=== PATIENT | female | born 1940 | race Caucasian/White ===

== ENCOUNTER 2016-07-03 14:14 | Inpatient (IN) | payer OTHER ==
[~2016-07-03] VITALS: Ht 162.6 cm; Wt 73.8 kg
[~2016-07-03 14:14] MED LIST: AMIT50TA3; ATEN1TAB38; ATEN50TA; BISA-13; CYCL-181 PO; CYCL5TAB89; LORA-655; OMEP20CA5 PO; OXYB5TAB62; OXYC-589; OXYC5CAP17; PAXIL; PAXIL PO; PRILOSEC; SIMV-13 PO
[2016-07-03] MEDS ORDERED: SODIUM CHLORIDE 0.9% 250 ML IV ONE (15:16)
[2016-07-03] MEDS ORDERED: ONDANSETRON HCL 4 MG/2 ML VIAL IV ONE (15:30)
[2016-07-03] MEDS ORDERED: HYDROmorphone HCL 2 MG/ML VL IV ONE (15:30)
[2016-07-03 15:35] LABS: Basophils # (auto) 0.1 uL; Basophils % (auto) 0.5 % (0.0-2.0); Eosinophils # (auto) 0.1 uL; Eosinophils % (auto) 1.2 % (0.0-7.0); Hematocrit 41.5 % (36.0-46.0); Hemoglobin 14.1 g/dL (12.2-16.2); Lymphocytes # (auto) 0.8 uL; Mean Corpuscular Hgb Conc. 34.1 g/dL (32.0-36.0); Mean Corpuscular Volume 96.8 fL (80.0-100.0); Mean Platelet Volume 8.2 fL (7.4-10.4); Monocytes # (auto) 0.6 uL; Monocytes % (auto) 5.5 % (0.0-12.0); Neutrophils # (auto) 9.5 uL; Neutrophils % (auto) 85.8 % (37.0-80.0); Platelet Count (auto) 249 10^3/uL (140-450); Red Cell Distribution Width 13.9 % (11.6-16.0)
[2016-07-03 15:50] LABS: INR 1.05 (0.9-1.15); Partial Thromboplastin Time 29.6 sec (22.64-33.71); Prothrombin Time 10.8 sec (9.37-12.3)
[2016-07-03 16:01] LABS: Albumin 3.7 g/dL (3.4-5.0); Anion Gap 9 (5-15); Aspartate Aminotransferase 20 U/L (15-37); BUN/Creatinine Ratio 17.2; Blood Urea Nitrogen 16 mg/dL (7-18); Calcium 8.4 mg/dL (8.5-10.1); Carbon Dioxide 22 mmol/L (21-32); Chloride 107 mmol/L (98-107); GFR African American 75 mL/min; GFR Non-African American 62 mL/min; Glucose 92 mg/dL (74-106); Magnesium 2.2 mg/dL (1.6-2.6); Potassium 3.9 mmol/L (3.5-5.1); Sodium 138 mmol/L (136-145)
[2016-07-03 16:06] LABS: Alkaline Phosphatase 91 U/L (45-117); Bilirubin, Total 0.3 mg/dL (0.2-1.0); Total Protein 7.3 g/dL (6.4-8.2)
[2016-07-03 17:37] LABS: Urine RBC None Seen /hpf (0 - 4)
[2016-07-03 17:51] LABS: Urine Bilirubin Negative (Negative); Urine Blood Negative /uL (Negative); Urine Color Yellow (Yellow); Urine Glucose Normal (Normal); Urine Ketone Negative (Negative); Urine Nitrite Negative (Negative); Urine Squamous Epithelial Cell FEW /hpf (<5); Urine Urobilinogen Normal (Negative); Urine pH 6.5 (5.0-8.0)
[2016-07-03] MEDS ORDERED: DOCUSATE SOD 100 MG CAP PO PRN (18:00)
[2016-07-03] MEDS ORDERED: NITROGLYCERIN 0.4 MG SL TAB SL PRN (18:00)
[2016-07-03] MEDS ORDERED: ACETAMINOPHEN 325 MG TAB PO PRN (18:00)
[2016-07-03] MEDS ORDERED: LEVOFLOXACIN 500MG 100 ML IV ONE (18:00)
[2016-07-03] MEDS: HYDROmorphone HCL 2 MG/ML VL IV PRN (19:29)
[2016-07-03] MEDS: ONDANSETRON HCL 4 MG/2 ML VIAL IV PRN (19:32)
[2016-07-03] MEDS ORDERED: VANCOMYCIN PER PHARMACY 0 MG IV SCH (20:30)
[2016-07-03 21:06] VITALS: BP 117/60
[2016-07-03] MEDS ORDERED: ATORVASTATIN 20 MG TAB PO SCH (22:00)
[2016-07-03] MEDS ORDERED: FAMOTIDINE 20 MG TAB PO SCH (22:00)
[2016-07-03] MEDS ORDERED: VANCOMYCIN 1GM/250ML D5W 250 ML IV SCH (22:00)
[2016-07-03] MEDS: TEMAZEPAM 15 MG CAP PO PRN (22:15)
[2016-07-03] MEDS: AMITRIPTYLINE HCL 25 MG TAB PO SCH (22:15)
[2016-07-03] MEDS: PANTOPRAZOLE 40 MG TAB PO SCH (22:15)
[2016-07-03] MEDS: SODIUM CHLOR 0.9% PF (SALINE LOCK) 10ML VIAL IV SCH (22:19)
[2016-07-03 22:38] VITALS: BP 117/60
[2016-07-04] MEDS ORDERED: PNEUMOCOCCAL VACC POLYS 25 MCG/0.5 ML VIAL IM ONE
[2016-07-04 05:00] VITALS: BP 148/75
[2016-07-04] MEDS: HYDROmorphone HCL 2 MG/ML VL IV PRN ×2 (05:58→10:19)
[2016-07-04] MEDS: SODIUM CHLOR 0.9% PF (SALINE LOCK) 10ML VIAL IV SCH ×3 (05:58→22:04)
[2016-07-04 07:24] LABS: Basophils # (auto) 0 uL; Basophils % (auto) 0.5 % (0.0-2.0); Eosinophils # (auto) 0.3 uL; Eosinophils % (auto) 4.5 % (0.0-7.0); Hematocrit 37.8 % (36.0-46.0); Hemoglobin 12.7 g/dL (12.2-16.2); Lymphocytes # (auto) 0.7 uL; Lymphocytes % (auto) 10.8 % (10.0-50.0); Mean Corpuscular Hemoglobin 32.7 pg (28.0-32.0); Mean Corpuscular Hgb Conc. 33.6 g/dL (32.0-36.0); Mean Corpuscular Volume 97.3 fL (80.0-100.0); Mean Platelet Volume 8.3 fL (7.4-10.4); Monocytes # (auto) 0.6 uL; Monocytes % (auto) 8.8 % (0.0-12.0); Neutrophils # (auto) 4.9 uL; Neutrophils % (auto) 75.4 % (37.0-80.0); Platelet Count (auto) 225 10^3/uL (140-450); Red Cell Distribution Width 14.3 % (11.6-16.0); White Blood Cell 6.4 10^3/uL (4.4-10.8)
[2016-07-04 07:29] LABS: Albumin 3.2 g/dL (3.4-5.0); BUN/Creatinine Ratio 14.5; Bilirubin, Total 0.8 mg/dL (0.2-1.0); Calcium 8.1 mg/dL (8.5-10.1); Potassium 4.1 mmol/L (3.5-5.1); Total Protein 6.7 g/dL (6.4-8.2)
[2016-07-04 08:00] VITALS: BP_SYST 112; BP_SYST 157; BP_DIAS 67; BP_DIAS 78
[2016-07-04 08:15] VITALS: BP 112/67
[2016-07-04] MEDS: MULTIPLE VITAMIN TAB PO SCH (10:14)
[2016-07-04] MEDS: ATENOLOL 50 MG TAB PO SCH (10:16)
[2016-07-04] MEDS: PARoxetine 20 MG TAB PO SCH (10:19)
[2016-07-04] MEDS ORDERED: LEVOFLOXACIN 500MG 100 ML IV SCH (12:00)
[2016-07-04 12:30] VITALS: BP 134/83
[2016-07-04] MEDS ORDERED: SODIUM CHLORIDE 0.9% 1,000 ML IV ONE (13:30)
[2016-07-04] MEDS: OXYCODONE W/ ACETAMINOPHEN 5/325MG TABLET PO PRN ×2 (13:56→23:52)
[2016-07-04 17:00] VITALS: BP 133/71
[2016-07-04 22:00] VITALS: BP 152/78
[2016-07-04] MEDS: AMITRIPTYLINE HCL 25 MG TAB PO SCH (22:04)
[2016-07-04] MEDS: PANTOPRAZOLE 40 MG TAB PO SCH (22:05)
[2016-07-05] VITALS (7 sets, daily range): BP systolic 137–184; BP diastolic 59–84
[2016-07-05] MEDS: SODIUM CHLOR 0.9% PF (SALINE LOCK) 10ML VIAL IV SCH ×3 (05:34→21:33)
[2016-07-05] MEDS: OXYCODONE W/ ACETAMINOPHEN 5/325MG TABLET PO PRN (05:44)
[2016-07-05 06:46] LABS: Potassium 3.8 mmol/L (3.5-5.1)
[2016-07-05 07:00] LABS: Albumin 2.8 g/dL (3.4-5.0); BUN/Creatinine Ratio 10.5; Calcium 7.9 mg/dL (8.5-10.1); Total Protein 6.1 g/dL (6.4-8.2)
[2016-07-05 07:02] LABS: Bilirubin, Total 0.6 mg/dL (0.2-1.0)
[2016-07-05] MEDS: MULTIPLE VITAMIN TAB PO SCH (10:00)
[2016-07-05] MEDS: PARoxetine 20 MG TAB PO SCH (10:00)
[2016-07-05] MEDS: ENOXAPARIN SOD 40 MG/0.4 ML SYRINGE SC SCH (10:00)
[2016-07-05] MEDS: ATENOLOL 50 MG TAB PO SCH (10:00)
[2016-07-05] MEDS: ONDANSETRON HCL 4 MG/2 ML VIAL IV PRN (11:11)
[2016-07-05] MEDS: HYDROmorphone HCL 2 MG/ML VL IV PRN (11:11)
[2016-07-05] MEDS ORDERED: SODIUM CHLORIDE 0.9% 1,000 ML IV ONE (11:45)
[2016-07-05] MEDS: AMITRIPTYLINE HCL 25 MG TAB PO SCH (21:33)
[2016-07-05] MEDS: PANTOPRAZOLE 40 MG TAB PO SCH (21:33)
[2016-07-06] VITALS (7 sets, daily range): BP systolic 140–180; BP diastolic 70–88
[2016-07-06] MEDS: SODIUM CHLOR 0.9% PF (SALINE LOCK) 10ML VIAL IV SCH ×3 (05:46→21:49)
[2016-07-06] MEDS: OXYCODONE W/ ACETAMINOPHEN 5/325MG TABLET PO PRN ×3 (05:58→21:50)
[2016-07-06 06:00] LABS: Albumin 2.9 g/dL (3.4-5.0); BUN/Creatinine Ratio 12.1; Bilirubin, Total 0.7 mg/dL (0.2-1.0); Calcium 8.7 mg/dL (8.5-10.1); Potassium 3.6 mmol/L (3.5-5.1); Total Protein 6.5 g/dL (6.4-8.2)
[2016-07-06] MEDS: MULTIPLE VITAMIN TAB PO SCH (09:17)
[2016-07-06] MEDS: ENOXAPARIN SOD 40 MG/0.4 ML SYRINGE SC SCH (09:17)
[2016-07-06] MEDS: ATENOLOL 50 MG TAB PO SCH (09:17)
[2016-07-06] MEDS: PARoxetine 20 MG TAB PO SCH (09:17)
[2016-07-06] MEDS: cloNIDine HCL 0.1 MG TAB PO PRN (20:48)
[2016-07-06] MEDS: PANTOPRAZOLE 40 MG TAB PO SCH (21:49)
[2016-07-06] MEDS: AMITRIPTYLINE HCL 25 MG TAB PO SCH (21:49)
[2016-07-07] MEDS: SODIUM CHLOR 0.9% PF (SALINE LOCK) 10ML VIAL IV SCH ×3 (05:33→22:47)
[2016-07-07 05:40] VITALS: BP 147/96
[2016-07-07 08:00] VITALS: BP 136/84
[2016-07-07 09:00] VITALS: BP 136/84
[2016-07-07 10:18] LABS: Hemoglobin 13.9 g/dL (12.2-16.2)
[2016-07-07] MEDS ORDERED: GASTROGRAFIN 30 ML SOL ONE (10:29)
[2016-07-07] MEDS: ATENOLOL 50 MG TAB PO SCH (10:39)
[2016-07-07] MEDS: PARoxetine 20 MG TAB PO SCH (10:43)
[2016-07-07] MEDS: MULTIPLE VITAMIN TAB PO SCH (10:44)
[2016-07-07] MEDS: PANTOPRAZOLE 40 MG TAB PO SCH ×2 (12:13→22:47)
[2016-07-07 12:32] LABS: Hematocrit 39.9 % (36.0-46.0); Hemoglobin 13.6 g/dL (12.2-16.2)
[2016-07-07 12:48] VITALS: BP 152/74
[2016-07-07] MEDS: OXYCODONE W/ ACETAMINOPHEN 5/325MG TABLET PO PRN (14:14)
[2016-07-07 17:00] VITALS: BP 153/69
[2016-07-07 19:01] LABS: Hemoglobin 13.1 g/dL (12.2-16.2)
[2016-07-07] MEDS: HYDROmorphone HCL 2 MG/ML VL IV PRN (21:19)
[2016-07-07 22:00] VITALS: BP_SYST 137; BP_SYST 157; BP_DIAS 65; BP_DIAS 90
[2016-07-07] MEDS: AMITRIPTYLINE HCL 25 MG TAB PO SCH (22:47)
[2016-07-08 01:38] LABS: Hemoglobin 12.4 g/dL (12.2-16.2)
[2016-07-08 05:20] VITALS: BP 145/72
[2016-07-08] MEDS: SODIUM CHLOR 0.9% PF (SALINE LOCK) 10ML VIAL IV SCH (05:20)
[2016-07-08 05:47] LABS: Basophils # (auto) 0 uL; Eosinophils # (auto) 0.2 uL; Eosinophils % (auto) 2.3 % (0.0-7.0); Hematocrit 37.4 % (36.0-46.0); Hemoglobin 12.5 g/dL (12.2-16.2); Lymphocytes # (auto) 0.9 uL; Lymphocytes % (auto) 8.6 % (10.0-50.0); Mean Corpuscular Hgb Conc. 33.5 g/dL (32.0-36.0); Mean Corpuscular Volume 98.6 fL (80.0-100.0); Mean Platelet Volume 9.1 fL (7.4-10.4); Monocytes % (auto) 9.8 % (0.0-12.0); Neutrophils % (auto) 79.3 % (37.0-80.0); Platelet Count (auto) 227 10^3/uL (140-450); Red Cell Distribution Width 13.6 % (11.6-16.0); White Blood Cell 10.1 10^3/uL (4.4-10.8)
[2016-07-08 06:03] LABS: Albumin 2.5 g/dL (3.4-5.0); BUN/Creatinine Ratio 14.8; Calcium 8.2 mg/dL (8.5-10.1)
[2016-07-08 06:06] LABS: Bilirubin, Total 0.7 mg/dL (0.2-1.0); Total Protein 6.5 g/dL (6.4-8.2)
[2016-07-08 06:34] LABS: Potassium 2.9 mmol/L (3.5-5.1)
[2016-07-08] MEDS ORDERED: POTASSIUM CHL 20 Meq TABLET PO ONE (07:15)
[2016-07-08 09:00] VITALS: BP 142/92
[2016-07-08] MEDS: OXYCODONE W/ ACETAMINOPHEN 5/325MG TABLET PO PRN ×2 (09:07→20:42)
[2016-07-08] MEDS: PANTOPRAZOLE 40 MG TAB PO SCH (09:20)
[2016-07-08] MEDS: PARoxetine 20 MG TAB PO SCH (09:20)
[2016-07-08] MEDS: MULTIPLE VITAMIN TAB PO SCH (09:21)
[2016-07-08] MEDS: ATENOLOL 50 MG TAB PO SCH (09:22)
[2016-07-08] MEDS: SOD CHL 0.9%/ KCL 20MEQ 1,000 ML IV SCH ×2 (10:04→17:56)
[2016-07-08 17:00] VITALS: BP 159/91
[2016-07-08] MEDS: CYCLOBENZAPRINE HCL 10 MG TAB PO PRN (18:59)
[2016-07-08] MEDS: AMITRIPTYLINE HCL 25 MG TAB PO SCH (20:43)
[2016-07-08 22:00] VITALS: BP 164/72
[2016-07-09] MEDS: SOD CHL 0.9%/ KCL 20MEQ 1,000 ML IV SCH ×2 (05:11→15:30)
[2016-07-09 05:25] LABS: Basophils # (auto) 0.1 uL; Basophils % (auto) 0.7 % (0.0-2.0); Eosinophils # (auto) 0.4 uL; Eosinophils % (auto) 5.3 % (0.0-7.0); Hematocrit 35.4 % (36.0-46.0); Lymphocytes # (auto) 0.8 uL; Lymphocytes % (auto) 9.8 % (10.0-50.0); Mean Corpuscular Hemoglobin 33.1 pg (28.0-32.0); Mean Corpuscular Hgb Conc. 33.9 g/dL (32.0-36.0); Mean Corpuscular Volume 97.7 fL (80.0-100.0); Mean Platelet Volume 8.8 fL (7.4-10.4); Monocytes # (auto) 0.8 uL; Monocytes % (auto) 9.1 % (0.0-12.0); Neutrophils # (auto) 6.4 uL; Neutrophils % (auto) 75.1 % (37.0-80.0); Platelet Count (auto) 232 10^3/uL (140-450); Red Cell Distribution Width 14.1 % (11.6-16.0); White Blood Cell 8.5 10^3/uL (4.4-10.8)
[2016-07-09] MEDS: cloNIDine HCL 0.1 MG TAB PO PRN ×2 (05:39→09:46)
[2016-07-09] MEDS: CYCLOBENZAPRINE HCL 10 MG TAB PO PRN (05:39)
[2016-07-09 05:40] VITALS: BP 183/97
[2016-07-09 06:08] LABS: BUN/Creatinine Ratio 16.8; Calcium 8.1 mg/dL (8.5-10.1); Potassium 3.5 mmol/L (3.5-5.1)
[2016-07-09] MEDS: HYDROmorphone HCL 2 MG/ML VL IV PRN ×2 (07:04→19:25)
[2016-07-09 09:17] VITALS: BP 186/76
[2016-07-09] MEDS: PARoxetine 20 MG TAB PO SCH (09:45)
[2016-07-09] MEDS: PANTOPRAZOLE 40 MG TAB PO SCH (09:46)
[2016-07-09] MEDS: MULTIPLE VITAMIN TAB PO SCH (09:46)
[2016-07-09] MEDS: ATENOLOL 50 MG TAB PO SCH (09:46)
[2016-07-09 13:00] VITALS: BP 106/62
[2016-07-09 17:11] VITALS: BP 159/75
[2016-07-09 20:20] VITALS: BP 138/78
[2016-07-09] MEDS: TEMAZEPAM 15 MG CAP PO PRN (21:40)
[2016-07-09] MEDS: OXYCODONE W/ ACETAMINOPHEN 5/325MG TABLET PO PRN (21:40)
[2016-07-09] MEDS: AMITRIPTYLINE HCL 25 MG TAB PO SCH (21:41)
[2016-07-09 22:00] VITALS: BP 138/78
[2016-07-10] MEDS: SOD CHL 0.9%/ KCL 20MEQ 1,000 ML IV SCH ×2 (01:09→11:10)
[2016-07-10 04:54] VITALS: BP 133/72
[2016-07-10 08:35] VITALS: BP 138/68
[2016-07-10] MEDS: HYDROmorphone HCL 2 MG/ML VL IV PRN (09:35)
[2016-07-10] MEDS: ATENOLOL 50 MG TAB PO SCH (10:04)
[2016-07-10] MEDS: PANTOPRAZOLE 40 MG TAB PO SCH (10:04)
[2016-07-10] MEDS: PARoxetine 20 MG TAB PO SCH (10:05)
[2016-07-10] MEDS: MULTIPLE VITAMIN TAB PO SCH (10:05)
[2016-07-10 12:15] VITALS: BP 141/76
[2016-07-10 16:18] VITALS: BP 152/77
== END 2016-07-10 18:30 | disposition home or self-care (01) | DRG 542 ==
LOC: ER 14:14 → TELE 14:15 → TELE-WESTW 20:13 → WEST WING 07-04 12:08
PROVIDERS: ADMIT Internal Medicine; ATTEND Internal Medicine
DX: M80.052A Age-related osteoporosis with current pathological fracture, left femur, initial encounter for fracture (principal); N17.0 Acute kidney failure with tubular necrosis; S32.602A Unspecified fracture of left ischium, initial encounter for closed fracture; K55.9 Vascular disorder of intestine, unspecified; M62.82 Rhabdomyolysis; S32.692A Other specified fracture of left ischium, initial encounter for closed fracture; S32.592A Other specified fracture of left pubis, initial encounter for closed fracture; F17.210 Nicotine dependence, cigarettes, uncomplicated; F32.9 Major depressive disorder, single episode, unspecified; K21.9 Gastro-esophageal reflux disease without esophagitis; E78.5 Hyperlipidemia, unspecified; E83.51 Hypocalcemia; E86.0 Dehydration; E87.6 Hypokalemia; I12.9 Hypertensive chronic kidney disease with stage 1 through stage 4 chronic kidney disease, or unspecified chronic kidney disease; I70.8 Atherosclerosis of other arteries; W11.XXXA Fall on and from ladder, initial encounter; N18.2 Chronic kidney disease, stage 2 (mild); R33.9 Retention of urine, unspecified; Z83.3 Family history of diabetes mellitus; Z88.0 Allergy status to penicillin; Z88.5 Allergy status to narcotic agent; Z88.2 Allergy status to sulfonamides; Z88.1 Allergy status to other antibiotic agents; Z82.49 Family history of ischemic heart disease and other diseases of the circulatory system; Z90.49 Acquired absence of other specified parts of digestive tract; Z23 Encounter for immunization; Y93.39 Activity, other involving climbing, rappelling and jumping off; Y92.099 Unspecified place in other non-institutional residence as the place of occurrence of the external cause; Y99.8 Other external cause status
CPT/HCPCS: 36415; 51702; 71010; 73502; 74176; 80048; 80053; 80202; 81001; 82378; 82550; 82565; 83735; 84132; 84484; 84520; 85014; 85018; 85025; 85610; 85730; 87040; 87086; 93005; 94761; 96361; 96374; 96375; 97001; 97116; 97530; J1956; J2405

== ENCOUNTER → 2017-11-29 | Outpatient (CLI) | payer OTHER ==
[~2017-11-29] MED LIST changes: -OMEP20CA5 PO; +OMEP20CA74 PO
[2017-11-29 13:37] LABS: Urine Bacteria FEW /hpf (None Seen); Urine Blood TRACE /uL (Negative); Urine WBC 200 /hpf (0 - 5)
== END | disposition home or self-care (01) ==
LOC: LAB 12:55
PROVIDERS: ATTEND Family Medicine
DX: N39.0 Urinary tract infection, site not specified (principal)
CPT/HCPCS: 81001; 87086

== ENCOUNTER 2018-02-04 09:26 | Day surgery (SDC) | payer OTHER ==
[2018-01-31 12:42] LABS: Basophils # (auto) 0.1 uL; Eosinophils # (auto) 0.1 uL
[2018-01-31 12:45] LABS: Eosinophils % (auto) 2.4 % (0.0-7.0); Hematocrit 43.1 % (36.0-46.0); Hemoglobin 14.9 g/dL (12.2-16.2); Lymphocytes # (auto) 0.9 uL; Lymphocytes % (auto) 17.2 % (10.0-50.0); Mean Corpuscular Hemoglobin 34.3 pg (28.0-32.0); Mean Corpuscular Hgb Conc. 34.4 g/dL (32.0-36.0); Mean Corpuscular Volume 99.5 fL (80.0-100.0); Monocytes # (auto) 0.3 uL; Monocytes % (auto) 6.1 % (0.0-12.0); Neutrophils # (auto) 3.9 uL; Neutrophils % (auto) 73.3 % (37.0-80.0); Platelet Count (auto) 199 10^3/uL (140-450); Red Blood Cells 4.34 10^6/uL (4.0-5.20); Red Cell Distribution Width 13.5 % (11.8-14.3); White Blood Cell 5.3 10^3/uL (4.4-10.8)
[2018-01-31 13:02] LABS: INR 0.96 (0.9-1.15); Partial Thromboplastin Time 32.8 sec (23.78-33.04); Prothrombin Time 10.3 sec (9.27-12.13)
[2018-01-31 13:25] LABS: Albumin 3.7 g/dL (3.4-5.0); BUN/Creatinine Ratio 20.4; Calcium 8.3 mg/dL (8.5-10.1); Potassium 4.4 mmol/L (3.5-5.1)
[2018-01-31 13:28] LABS: Bilirubin, Total 0.5 mg/dL (0.2-1.0); Total Protein 7.5 g/dL (6.4-8.2)
[2018-01-31 13:34] LABS: Urine Bacteria FEW /hpf (None Seen); Urine Blood Negative /uL (Negative); Urine Mucus FEW (None Seen); Urine Specific Gravity 1.008 (1.001-1.035); Urine WBC 2 /hpf (0 - 5)
[~2018-02-04] VITALS: Ht 160 cm; Wt 69.4 kg
[~2018-02-04 09:26] MED LIST changes: -AMIT50TA3; +AMIT50TA3 OR; -ATEN1TAB38; -ATEN50TA; +ATEN50TA PO; -BISA-13; -CYCL-181 PO; -CYCL5TAB89; +HYDR12.56 PO; -LORA-655; -OXYB5TAB62; -OXYC-589; -OXYC5CAP17; +PANT40TA2 PO; +PARO1TAB33 PO; -PAXIL; -PAXIL PO; +PERCOT PO; -PRILOSEC
[2018-02-04] MEDS ORDERED: fentaNYL CITRATE 100 MCG/2 ML VL ONE (10:52)
[2018-02-04] MEDS ORDERED: MIDAZOLAM HCL 1MG/1ML-2 ML VIAL ONE (10:52)
[2018-02-04] MEDS ORDERED: PROPOFOL 10 MG/ML 20 ML IV ONE (10:55)
[2018-02-04] MEDS ORDERED: ePHEDrine SULFATE 50 MG/ML AMP IV PRN (11:15)
[2018-02-04] MEDS ORDERED: ONDANSETRON HCL 4 MG/2 ML VIAL IV ONE (11:15)
[2018-02-04] MEDS ORDERED: hydrALAZINE HCL 20 MG/ML VL IV PRN (11:15)
[2018-02-04 11:34] VITALS: BP 135/83
[2018-02-04] MEDS ORDERED: fentaNYL CITRATE 100 MCG/2 ML VL IV ONE (12:00)
== END 2018-02-04 11:41 | disposition home or self-care (01) ==
LOC: GI 09:26
PROVIDERS: ATTEND Internal Medicine Gastroenterology
DX: K29.50 Unspecified chronic gastritis without bleeding (principal); K29.80 Duodenitis without bleeding; R13.10 Dysphagia, unspecified; F41.9 Anxiety disorder, unspecified; I10 Essential (primary) hypertension; K21.9 Gastro-esophageal reflux disease without esophagitis; F17.210 Nicotine dependence, cigarettes, uncomplicated; Z90.49 Acquired absence of other specified parts of digestive tract; Z88.6 Allergy status to analgesic agent; Z88.0 Allergy status to penicillin; Z88.2 Allergy status to sulfonamides; Z88.1 Allergy status to other antibiotic agents; Z88.8 Allergy status to other drugs, medicaments and biological substances; Z90.710 Acquired absence of both cervix and uterus; Z98.890 Other specified postprocedural states; Z82.49 Family history of ischemic heart disease and other diseases of the circulatory system; Z83.3 Family history of diabetes mellitus
CPT/HCPCS: 36415; 43239; 43248; 80053; 81001; 85025; 85610; 85730; 88305; 88342; A6257; J2250; J2704; J3010; J7030

== ENCOUNTER 2018-05-28 11:03 | Inpatient (IN) | payer OTHER ==
[~2018-05-28] VITALS: Ht 157.5 cm; Wt 74.0 kg
[2018-05-28] MEDS ORDERED: ALBUTEROL SULF 2.5 MG/0.5ML(0.5%) NEB SOLN HHN ONE (11:30)
[2018-05-28] MEDS ORDERED: IPRATROPIUM BROM 0.5 MG/2.5ML INH SOL HHN ONE (11:30)
[2018-05-28] MEDS ORDERED: methylPREDNISolone SOD SUCC 125 MG/2 ML VL IV ONE (11:30)
[2018-05-28 12:19] LABS: Albumin 3.4 g/dL (3.4-5.0); Anion Gap 8 (5-15); Blood Urea Nitrogen 15 mg/dL (7-18); Calcium 8.5 mg/dL (8.5-10.1); Carbon Dioxide 23 mmol/L (21-32); Chloride 103 mmol/L (98-107); Glucose 129 mg/dL (74-106); Magnesium 2.2 mg/dL (1.6-2.6); Potassium 3.4 mmol/L (3.5-5.1); Sodium 134 mmol/L (136-145)
[2018-05-28 12:26] LABS: Alanine Aminotransferase 32 U/L (13-56); Alkaline Phosphatase 100 U/L (45-117); Aspartate Aminotransferase 25 U/L (15-37); BUN/Creatinine Ratio 12.6; Bilirubin, Total 0.6 mg/dL (0.2-1.0); GFR African American 56 mL/min; GFR Non-African American 47 mL/min; Total Protein 7.2 g/dL (6.4-8.2)
[2018-05-28 12:44] LABS: Basophils # (auto) 0 uL; Basophils % (auto) 0.8 % (0.0-2.0); Eosinophils # (auto) 0.2 uL; Eosinophils % (auto) 3.7 % (0.0-7.0); Hematocrit 41.5 % (36.0-46.0); Hemoglobin 14.1 g/dL (12.2-16.2); Lymphocytes # (auto) 0.7 uL; Lymphocytes % (auto) 12.8 % (10.0-50.0); Mean Corpuscular Hemoglobin 33.7 pg (28.0-32.0); Mean Corpuscular Hgb Conc. 33.9 g/dL (32.0-36.0); Mean Corpuscular Volume 99.4 fL (80.0-100.0); Monocytes # (auto) 0.5 uL; Monocytes % (auto) 8.9 % (0.0-12.0); Neutrophils # (auto) 3.8 uL; Neutrophils % (auto) 73.8 % (37.0-80.0); Nucleated Red Blood Cells % 0.1 %; Platelet Count (auto) 183 10^3/uL (140-450); Red Blood Cells 4.18 10^6/uL (4.0-5.20); Red Cell Distribution Width 14.3 % (11.8-14.3); White Blood Cell 5.1 10^3/uL (4.4-10.8)
[2018-05-28] MEDS ORDERED: cefTRIAXone 1GM/50ML D5W 50 ML IV ONE (15:30)
[2018-05-28] MEDS ORDERED: OSELTAMIVIR 30 MG CAP PO ONE (15:30)
[2018-05-28] MEDS ORDERED: AZITHROMYCIN 500MG/ 250ML 250 ML IV ONE (15:30)
[2018-05-28] MEDS ORDERED: ONDANSETRON HCL 4 MG/2 ML VIAL IV PRN (15:45)
[2018-05-28] MEDS ORDERED: HYDROcodone-ACET 5/325MG TAB PO PRN (15:45)
[2018-05-28] MEDS: IPRATROPIUM BROM 0.5 MG/2.5ML INH SOL NEB SCH (18:54)
[2018-05-28] MEDS: ALBUTEROL SULF 2.5 MG/0.5ML(0.5%) NEB SOLN NEB SCH (18:54)
[2018-05-28] MEDS: BUDESONIDE (INHALATION) 0.5 MG/2 ML NEB NEB SCH (18:54)
--- NOTE | 2018-05-28 19:34 | NUR ---
MS admit from GABY PONCE,PAUL Mckeon admitted to MS room 279B. Patient oriented to ALTON GUZMÁN, primary RN, unit, room, bed, and unit policies regarding patient care and visiting hours. Currently on 2LO2 via NC; patient does not wear at home; pain level 7/10 chronic back and neck pain; and at baseline ambulates with a cane and walker; currently SBA to BSC without assistive devices. Skin intact. Bed locked in lowest position, side rails up x2, call light within reach, and bed alarm on for patient safety. IV 20 g IID in left forearm inserted on 05/28/18. Patient weighed by bedscale and encouraged to call if they need something. All questions and concerns addressed, patient verbalized understanding.
[2018-05-28 19:44] VITALS: BP 149/41
[2018-05-28 20:00] VITALS: BP 139/67
--- NOTE | 2018-05-28 20:00 | NUR ---
Rapid flu swab sent to lab via [employer] system.
[2018-05-28] MEDS: methylPREDNISolone SOD SUCC 40 MG/ML VL IV SCH (21:49)
[2018-05-28] MEDS: ATORVASTATIN 20 MG TAB PO SCH (21:49)
[2018-05-28 22:00] VITALS: BP_SYST 109; BP_SYST 139; BP_DIAS 61; BP_DIAS 67
[2018-05-28] MEDS ORDERED: OSELTAMIVIR 30 MG CAP PO SCH (22:00)
[2018-05-29] VITALS (7 sets, daily range): BP systolic 125–165; BP diastolic 69–90
[2018-05-29 03:12] LABS: Urine Amorphous Crystal FEW /hpf (None Seen); Urine Bacteria MOD /hpf (None Seen); Urine Blood Negative /uL (Negative); Urine Hyaline Cast FEW /lpf (0 - 2); Urine Mucus FEW (None Seen); Urine Specific Gravity 1.014 (1.001-1.035); Urine WBC 3 /hpf (0 - 5)
[2018-05-29] MEDS: ALBUTEROL SULF 2.5 MG/0.5ML(0.5%) NEB SOLN NEB SCH ×4 (06:42→18:53)
[2018-05-29] MEDS: IPRATROPIUM BROM 0.5 MG/2.5ML INH SOL NEB SCH ×4 (06:42→18:53)
[2018-05-29] MEDS: methylPREDNISolone SOD SUCC 40 MG/ML VL IV SCH ×3 (07:18→21:09)
[2018-05-29 07:33] LABS: Potassium 3.6 mmol/L (3.5-5.1)
[2018-05-29 07:42] LABS: BUN/Creatinine Ratio 21.6; Calcium 8.8 mg/dL (8.5-10.1); Magnesium 2.3 mg/dL (1.6-2.6)
[2018-05-29] MEDS: cefTRIAXone 1GM/50ML D5W 50 ML IV SCH (09:28)
[2018-05-29] MEDS: BUDESONIDE (INHALATION) 0.5 MG/2 ML NEB NEB SCH ×2 (10:56→18:53)
[2018-05-29] MEDS: AZITHROMYCIN 500MG/ 250ML 250 ML IV SCH (11:28)
[2018-05-29] MEDS: PANTOPRAZOLE 40 MG TAB PO SCH (11:28)
[2018-05-29] MEDS ORDERED: NICOTINE 14 MG/24HR TOPICAL PATCH TD ONE (11:45)
--- NOTE | 2018-05-29 13:00 | NUR ---
PATIENT AMBULATED TO THE BATHROOM PROVIDED EXTRA WINTER OXYGEN TUBING, PATIENT REALLY SHORT OF BREATH UPON RETURNING TO BED, BUMPED O2 UP TO 3L NC UNTIL SOB OF BREATH LEVELED OUT. EDUCATED THE PATIENT ON USING THE BSC FROM NOW ON HER SOB IS TO SEVERE AT THIS TIME.
--- NOTE | 2018-05-29 14:16 | NUR ---
Opening Shift Note Assumed care of patient, awake and alert. No S/S of distress/SOB or pain. Instructed on POC and to call for assist PRN, will continue to monitor for changes Q1hr and PRN. Bed locked in lowest position with two side rails up and call light in reach patient sounds very wheezy just standing next to the bed.
[2018-05-29] MEDS: ATORVASTATIN 20 MG TAB PO SCH (21:09)
[2018-05-30 05:00] VITALS: BP 160/71
[2018-05-30] MEDS: IPRATROPIUM BROM 0.5 MG/2.5ML INH SOL NEB SCH ×3 (05:40→14:11)
[2018-05-30] MEDS: ALBUTEROL SULF 2.5 MG/0.5ML(0.5%) NEB SOLN NEB SCH ×3 (05:40→14:11)
[2018-05-30] MEDS: BUDESONIDE (INHALATION) 0.5 MG/2 ML NEB NEB SCH (05:41)
[2018-05-30] MEDS: methylPREDNISolone SOD SUCC 40 MG/ML VL IV SCH ×2 (05:58→15:13)
[2018-05-30 08:36] VITALS: BP 162/70
[2018-05-30] MEDS: cefTRIAXone 1GM/50ML D5W 50 ML IV SCH (09:51)
[2018-05-30] MEDS: PANTOPRAZOLE 40 MG TAB PO SCH (09:51)
[2018-05-30] MEDS ORDERED: NICOTINE 14 MG/24HR TOPICAL PATCH TD SCH (10:00)
[2018-05-30] MEDS: AZITHROMYCIN 500MG/ 250ML 250 ML IV SCH (11:01)
[2018-05-30] MEDS ORDERED: HCTZ 25 MG TAB PO ONE (14:45)
[2018-05-30 14:50] VITALS: BP 179/88
--- NOTE | 2018-05-30 17:28 | NUR ---
Discharge instructions given as ordered. Encourage to follow up with PMD as instructed. All questions and concerns addressed. Patient verbalized understanding. Medication reconciliation form completed and copy given to patient. Home medications held in Pharmacy returned to patient. IV removed with catheter intact, pressure dressing applied. Patient taken to vehicle via wheelchair with all personal belongings, accompanied by staff and family member. No distress noted at time of departure.
== END 2018-05-30 17:30 | disposition home or self-care (01) | DRG 190 ==
LOC: ER 11:08 → OVERFLOW 15:29 → WEST WING 19:49
PROVIDERS: ADMIT Internal Medicine; ATTEND Internal Medicine
DX: J44.0 Chronic obstructive pulmonary disease with (acute) lower respiratory infection (principal); J18.9 Pneumonia, unspecified organism; J44.1 Chronic obstructive pulmonary disease with (acute) exacerbation; E66.9 Obesity, unspecified; R73.9 Hyperglycemia, unspecified; E78.5 Hyperlipidemia, unspecified; F17.210 Nicotine dependence, cigarettes, uncomplicated; I10 Essential (primary) hypertension; K21.9 Gastro-esophageal reflux disease without esophagitis; Z83.3 Family history of diabetes mellitus; Z90.710 Acquired absence of both cervix and uterus; Z88.0 Allergy status to penicillin; Z88.2 Allergy status to sulfonamides; Z68.29 Body mass index [BMI] 29.0-29.9, adult; Z90.49 Acquired absence of other specified parts of digestive tract
CPT/HCPCS: 36415; 71046; 80048; 80053; 81001; 83605; 83735; 83880; 84484; 85025; 87040; 87804; 93005; 93306; 94640; 94644; 94761; 96365; 96367; 96375; G0378; G9035; J0696

== ENCOUNTER → 2018-07-31 | Outpatient (CLI) | payer OTHER ==
[~2018-07-31] MED LIST changes: +ALBUTEROL SULF 2.5 MG/0.5ML(0.5%) NEB SOLN ONE; -PANT40TA2 PO
== END | disposition home or self-care (01) ==
LOC: RT 08:55
PROVIDERS: ATTEND Internal Medicine Pulmonary Disease
DX: J44.9 Chronic obstructive pulmonary disease, unspecified (principal)
CPT/HCPCS: 36600; 82805; 94060; J7611

== ENCOUNTER → 2018-09-03 | Outpatient (CLI) | payer OTHER ==
[~2018-09-03] MED LIST changes: -ALBUTEROL SULF 2.5 MG/0.5ML(0.5%) NEB SOLN ONE
== END | disposition home or self-care (01) ==
LOC: XY 08:29
PROVIDERS: ATTEND Internal Medicine
DX: I25.10 Atherosclerotic heart disease of native coronary artery without angina pectoris (principal); I70.8 Atherosclerosis of other arteries; I73.9 Peripheral vascular disease, unspecified; I87.2 Venous insufficiency (chronic) (peripheral); M79.89 Other specified soft tissue disorders
CPT/HCPCS: 93925; 93970

== ENCOUNTER → 2018-09-24 | Outpatient (CLI) | payer OTHER ==
[~2018-09-24] VITALS: Ht 160 cm; Wt 71.7 kg
[~2018-09-24] MED LIST changes: +ADENOSINE 60 MG in GIVE UN-DILUTED 0 ML IV STA
[2018-09-24 09:43] VITALS: BP 131/73
== END | disposition home or self-care (01) ==
LOC: XY 08:08
PROVIDERS: ATTEND Internal Medicine
DX: I42.9 Cardiomyopathy, unspecified (principal); I12.9 Hypertensive chronic kidney disease with stage 1 through stage 4 chronic kidney disease, or unspecified chronic kidney disease; N18.9 Chronic kidney disease, unspecified
CPT/HCPCS: 78452; 93017; A9500; J0153

== ENCOUNTER 2018-12-04 09:09 | Inpatient (IN) | payer OTHER ==
[2018-12-02 09:29] LABS: Basophils # (auto) 0.1 uL; Basophils % (auto) 1.2 % (0.0-2.0); Eosinophils # (auto) 0.1 uL; Eosinophils % (auto) 2.7 % (0.0-7.0); Hematocrit 41.3 % (36.0-46.0); Hemoglobin 14.2 g/dL (12.2-16.2); Lymphocytes # (auto) 0.6 uL; Lymphocytes % (auto) 11.4 % (10.0-50.0); Mean Corpuscular Hemoglobin 32.4 pg (28.0-32.0); Mean Corpuscular Hgb Conc. 34.3 g/dL (32.0-36.0); Mean Corpuscular Volume 94.5 fL (80.0-100.0); Monocytes # (auto) 0.4 uL; Monocytes % (auto) 7.4 % (0.0-12.0); Neutrophils # (auto) 4.2 uL; Neutrophils % (auto) 77.3 % (37.0-80.0); Nucleated Red Blood Cells % 0.1 %; Platelet Count (auto) 229 10^3/uL (140-450); Red Blood Cells 4.37 10^6/uL (4.0-5.20); Red Cell Distribution Width 14.3 % (11.8-14.3); White Blood Cell 5.4 10^3/uL (4.4-10.8)
[2018-12-02 09:47] LABS: INR 0.93 (0.9-1.15); Partial Thromboplastin Time 29.1 sec (23.64-32.05)
[2018-12-02 10:11] LABS: Potassium 3.6 mmol/L (3.5-5.1); Sodium 130 mmol/L (136-145)
[2018-12-02 10:12] LABS: Alanine Aminotransferase 25 U/L (13-56); Alkaline Phosphatase 80 U/L (45-117); Anion Gap 9 (5-15); Aspartate Aminotransferase 18 U/L (15-37); BUN/Creatinine Ratio 21.7; Bilirubin, Total 0.5 mg/dL (0.2-1.0); Blood Urea Nitrogen 18 mg/dL (7-18); Calcium 8.8 mg/dL (8.5-10.1); Carbon Dioxide 25 mmol/L (21-32); Chloride 96 mmol/L (98-107); GFR African American 86 mL/min; GFR Non-African American 71 mL/min; Glucose 97 mg/dL (74-106)
[2018-12-02 10:13] LABS: Albumin 3.7 g/dL (3.4-5.0)
[~2018-12-04] VITALS: Ht 160 cm; Wt 68.1 kg
[~2018-12-04 09:09] MED LIST changes: -ADENOSINE 60 MG in GIVE UN-DILUTED 0 ML IV STA; +ALBUAER3 IN; -AMIT50TA3 OR; +AMIT50TA3 PO; -ATEN50TA PO; +HCTZ25T PO; -HYDR12.56 PO; +OMEP-263 PO; -OMEP20CA74 PO; +OXY5T PO; +OYST500T29 PO; +PAR20T PO; -PARO1TAB33 PO; -PERCOT PO
[2018-12-04] MEDS ORDERED: IOHEXOL 350 MG/ML 100ML IJ ONE ×4 (10:27→12:16)
[2018-12-04] MEDS ORDERED: LIDOCAINE 2%HCL (LOCAL ANESTH.) INJ 20ML MDV ONE (10:27)
[2018-12-04] MEDS ORDERED: ANGIOMAX 250 MG VIAL IV ONE ×2 (10:35→12:29)
[2018-12-04] MEDS ORDERED: fentaNYL CITRATE 100 MCG/2 ML VL ONE ×2 (10:35→12:40)
[2018-12-04] MEDS ORDERED: SODIUM CHL 0.9% 50 ML ONE ×2 (10:36→12:29)
[2018-12-04] MEDS ORDERED: MIDAZOLAM HCL 1MG/1ML-2 ML VIAL ONE ×2 (10:36→12:08)
[2018-12-04] MEDS ORDERED: VERAPAMIL 2.5MG/ML INJ 2ML VIAL IV ONE (10:52)
[2018-12-04] MEDS ORDERED: METOPROLOL TARTRATE 1MG/1ML-5ML VIAL IV ONE (12:07)
[2018-12-04] MEDS ORDERED: CLOPIDOGREL 300 MG TAB ONE (12:47)
[2018-12-04] MEDS ORDERED: ASPirin 325 MG TAB ONE (12:48)
[2018-12-04] MEDS ORDERED: NITROGLYCERIN 0.4 MG SL TAB SL PRN (13:15)
[2018-12-04] MEDS ORDERED: ONDANSETRON HCL 4 MG/2 ML VIAL IV PRN (13:15)
[2018-12-04] MEDS ORDERED: ACETAMINOPHEN 500 MG TAB PO PRN (13:15)
--- NOTE | 2018-12-04 13:45 | NUR ---
RECEIVED REPORT FROM PAT WILBURN OF [employer]
--- NOTE | 2018-12-04 14:05 | NUR ---
MS admit from PAUL BINGHAM Mike admitted to tele/MS after SBAR received. Patient oriented to Trina Chino, primary RN, unit, room, bed, and unit policies regarding patient care and visiting hours. Patient weighed by bedscale and encouraged to call if they need something. All questions and concerns addressed, patient verbalized understanding. Note: pt is awake and alert, noted post op dressing on right groin clean dry and intact, flat on bed until 3:00pm, pt made aware, will continue to monitor.
[2018-12-04 14:30] VITALS: BP 137/80
[2018-12-04] MEDS: SODIUM CHLOR 0.9% PF (SALINE LOCK) 10ML VIAL/SYR IV SCH ×2 (14:57→21:41)
--- NOTE | 2018-12-04 15:00 | NUR ---
PT SIT UP ON BED, NO BLEEDING NOTED ON INCISION SITE.
[2018-12-04 17:08] VITALS: BP 134/80
--- NOTE | 2018-12-04 19:30 | NUR ---
Opening Shift Note Received report from ruben Mena RN. Assumed care of patient, awake and alert. No S/S of distress/SOB or pain. Instructed on POC and to call for assist PRN, will continue to monitor for changes Q1hr and PRN. Bed placed in lowest position, bed alarm turned on and call light within reach.
[2018-12-04] MEDS: OXYCODONE HCL 5MG TAB PO SCH (21:43)
[2018-12-04 22:00] VITALS: BP 149/68
[2018-12-04] MEDS ORDERED: AMITRIPTYLINE HCL 25 MG TAB PO SCH (22:00)
[2018-12-04] MEDS ORDERED: ATORVASTATIN 20 MG TAB PO SCH (22:00)
--- NOTE | 2018-12-05 04:01 | NUR ---
REPORT GIVEN TO MAIDA. PATIENT IS RESTING IN BED WITH EYES CLOSED, NO DISTRESS NOTED
--- NOTE | 2018-12-05 04:10 | NUR ---
RECEIVED PT FROM JOHNNA STEWART POC REVIEWED
[2018-12-05 05:32] VITALS: BP 138/71
[2018-12-05] MEDS: SODIUM CHLOR 0.9% PF (SALINE LOCK) 10ML VIAL/SYR IV SCH (06:54)
--- NOTE | 2018-12-05 07:02 | NUR ---
PT AWOKE DENIES PAIN RIGHT GROIN DRESSING DRY AND INTACT, PULSES PALPABLE NO C/O DISCOMFORT WILL REPORT OFF TO AM NURSE
--- NOTE | 2018-12-05 07:05 | NUR ---
REPORT GIVEN TO AM NURSE POC REVIEWED
--- NOTE | 2018-12-05 08:00 | NUR ---
Opening Shift Note Assumed care of patient, awake and alert. No S/S of distress/SOB or pain. Instructed on POC and to call for assist PRN, will continue to monitor for changes Q1hr and PRN.
[2018-12-05 08:29] VITALS: BP 130/72
[2018-12-05] MEDS: OXYCODONE HCL 5MG TAB PO SCH (09:43)
[2018-12-05] MEDS ORDERED: CLOPIDOGREL BISULFATE 75 MG TAB PO SCH (10:00)
[2018-12-05] MEDS ORDERED: ASPirin 81 mg TAB PO SCH (10:00)
[2018-12-05] MEDS ORDERED: PARoxetine 20 MG TAB PO SCH (10:00)
[2018-12-05] MEDS ORDERED: HCTZ 25 MG TAB PO SCH (10:00)
[2018-12-05] MEDS ORDERED: OMEPRAZOLE 20MG/10ML ORAL SUSP GT SCH (10:00)
--- NOTE | 2018-12-05 12:40 | NUR ---
Discharge instructions given as ordered. Encourage to follow up with PMD and Dr. Phan as instructed. All questions and concerns addressed. Patient verbalized understanding. Medication reconciliation form completed and copy given to patient. IV removed with catheter intact, pressure dressing applied. Patient taken to vehicle via wheelchair with all personal belongings, accompanied by staff and family member. No distress noted at time of departure.
== END 2018-12-05 12:40 | disposition home or self-care (01) | DRG 254 ==
LOC: CATH 09:09 → TELE-EAST 14:13 → EAST 12-05 05:02
PROVIDERS: ADMIT Internal Medicine; ATTEND Internal Medicine
PROC: 047L3ZZ Dilation of Left Femoral Artery, Percutaneous Approach (ICD-10-PCS; principal; 2018-12-04)
PROC: 047N3ZZ Dilation of Left Popliteal Artery, Percutaneous Approach (ICD-10-PCS; 2018-12-04)
PROC: B44GZZ3 Ultrasonography of Left Lower Extremity Arteries, Intravascular (ICD-10-PCS; 2018-12-04)
DX: I70.212 Atherosclerosis of native arteries of extremities with intermittent claudication, left leg (principal); J44.9 Chronic obstructive pulmonary disease, unspecified; I10 Essential (primary) hypertension; E78.5 Hyperlipidemia, unspecified; E66.9 Obesity, unspecified; Z79.02 Long term (current) use of antithrombotics/antiplatelets; Z79.82 Long term (current) use of aspirin; Z87.891 Personal history of nicotine dependence; Z98.62 Peripheral vascular angioplasty status; Z88.2 Allergy status to sulfonamides; Z88.6 Allergy status to analgesic agent; Z88.0 Allergy status to penicillin; Z88.8 Allergy status to other drugs, medicaments and biological substances; Z82.49 Family history of ischemic heart disease and other diseases of the circulatory system; Z68.26 Body mass index [BMI] 26.0-26.9, adult; Z79.899 Other long term (current) drug therapy
CPT/HCPCS: 36415; 80053; 82565; 85025; 85610; 85730; G0378; J2250

== ENCOUNTER → 2019-02-03 | Outpatient (CLI) | payer OTHER ==
[2019-02-03 09:12] LABS: Basophils # (auto) 0.1 uL; Basophils % (auto) 1.7 % (0.0-2.0); Eosinophils # (auto) 0.3 uL; Eosinophils % (auto) 4.7 % (0.0-7.0); Hematocrit 41.2 % (36.0-46.0); Hemoglobin 14.2 g/dL (12.2-16.2); Lymphocytes # (auto) 0.5 uL; Lymphocytes % (auto) 7.7 % (10.0-50.0); Mean Corpuscular Hemoglobin 33.2 pg (28.0-32.0); Mean Corpuscular Hgb Conc. 34.5 g/dL (32.0-36.0); Mean Corpuscular Volume 96.3 fL (80.0-100.0); Monocytes # (auto) 0.5 uL; Monocytes % (auto) 8.2 % (0.0-12.0); Neutrophils # (auto) 4.8 uL; Neutrophils % (auto) 77.7 % (37.0-80.0); Nucleated Red Blood Cells % 0.1 %; Platelet Count (auto) 219 10^3/uL (140-450); Red Blood Cells 4.28 10^6/uL (4.0-5.20); Red Cell Distribution Width 15.1 % (11.8-14.3); White Blood Cell 6.1 10^3/uL (4.4-10.8)
[2019-02-03 10:00] LABS: Albumin 3.5 g/dL (3.4-5.0); BUN/Creatinine Ratio 18.9; Bilirubin, Total 0.5 mg/dL (0.2-1.0); Calcium 8.7 mg/dL (8.5-10.1); Potassium 3.8 mmol/L (3.5-5.1); Total Protein 7.4 g/dL (6.4-8.2)
== END | disposition home or self-care (01) ==
LOC: LAB 08:48
PROVIDERS: ATTEND Nurse Practitioner
DX: E78.5 Hyperlipidemia, unspecified (principal)
CPT/HCPCS: 36415; 80053; 80061; 85025

== ENCOUNTER → 2019-02-20 | Outpatient (CLI) | payer OTHER | END | disposition home or self-care (01) | LOC: XY 08:41 | PROVIDERS: ATTEND Internal Medicine | DX: I73.9 Peripheral vascular disease, unspecified (principal); F32.9 Major depressive disorder, single episode, unspecified; K21.9 Gastro-esophageal reflux disease without esophagitis; I10 Essential (primary) hypertension; E78.5 Hyperlipidemia, unspecified; Z88.6 Allergy status to analgesic agent; Z88.1 Allergy status to other antibiotic agents; Z88.5 Allergy status to narcotic agent; Z88.2 Allergy status to sulfonamides; Z91.018 Allergy to other foods; Z87.891 Personal history of nicotine dependence; Z90.710 Acquired absence of both cervix and uterus; Z90.49 Acquired absence of other specified parts of digestive tract; Z98.890 Other specified postprocedural states; Z83.3 Family history of diabetes mellitus; Z82.49 Family history of ischemic heart disease and other diseases of the circulatory system | CPT/HCPCS: 93925 ==

== ENCOUNTER → 2019-02-20 | Outpatient (CLI) | payer OTHER ==
[2019-02-20 10:18] LABS: Basophils # (auto) 0.1 uL; Basophils % (auto) 1.2 % (0.0-2.0); Eosinophils # (auto) 0.2 uL; Eosinophils % (auto) 2.9 % (0.0-7.0); Hematocrit 40.5 % (36.0-46.0); Hemoglobin 13.9 g/dL (12.2-16.2); Lymphocytes # (auto) 0.6 uL; Lymphocytes % (auto) 12.4 % (10.0-50.0); Mean Corpuscular Hemoglobin 33.6 pg (28.0-32.0); Mean Corpuscular Hgb Conc. 34.4 g/dL (32.0-36.0); Mean Corpuscular Volume 97.6 fL (80.0-100.0); Monocytes # (auto) 0.3 uL; Monocytes % (auto) 6.6 % (0.0-12.0); Neutrophils % (auto) 76.9 % (37.0-80.0); Nucleated Red Blood Cells % 0.3 %; Platelet Count (auto) 265 10^3/uL (140-450); Red Blood Cells 4.14 10^6/uL (4.0-5.20); Red Cell Distribution Width 15.1 % (11.8-14.3); White Blood Cell 5.2 10^3/uL (4.4-10.8)
[2019-02-20 11:05] LABS: Albumin 3.6 g/dL (3.4-5.0); Calcium 8.7 mg/dL (8.5-10.1); Potassium 3.9 mmol/L (3.5-5.1)
[2019-02-20 11:08] LABS: BUN/Creatinine Ratio 23.1; Bilirubin, Total 0.5 mg/dL (0.2-1.0); Total Protein 7.3 g/dL (6.4-8.2)
[2019-02-20 11:15] LABS: Folate (Folic Acid) 17.4 ng/mL (5.38-24)
[2019-02-21 15:40] LABS: Urine Bacteria NONE SEEN /hpf (None Seen); Urine Blood 1+ /uL (Negative); Urine Specific Gravity 1.014 (1.001-1.035); Urine WBC 2310 /hpf (0 - 5)
== END | disposition home or self-care (01) ==
LOC: LAB 09:37
PROVIDERS: ATTEND Nurse Practitioner
DX: Z00.00 Encounter for general adult medical examination without abnormal findings (principal); I12.9 Hypertensive chronic kidney disease with stage 1 through stage 4 chronic kidney disease, or unspecified chronic kidney disease; N18.9 Chronic kidney disease, unspecified; F32.9 Major depressive disorder, single episode, unspecified; K21.9 Gastro-esophageal reflux disease without esophagitis; E78.5 Hyperlipidemia, unspecified; Z90.710 Acquired absence of both cervix and uterus; Z90.49 Acquired absence of other specified parts of digestive tract; Z83.3 Family history of diabetes mellitus
CPT/HCPCS: 36415; 80053; 81001; 82306; 82607; 82746; 83036; 84443; 85025

== ENCOUNTER → 2019-06-10 | Outpatient (CLI) | payer OTHER ==
[2019-06-10 12:36] LABS: Basophils # (auto) 0.1 uL; Eosinophils # (auto) 0.1 uL; Eosinophils % (auto) 2.6 % (0.0-7.0); Hematocrit 41.1 % (36.0-46.0); Lymphocytes # (auto) 0.7 uL; Lymphocytes % (auto) 13.5 % (10.0-50.0); Mean Corpuscular Hemoglobin 34.2 pg (28.0-32.0); Mean Corpuscular Volume 100.6 fL (80.0-100.0); Monocytes # (auto) 0.5 uL; Monocytes % (auto) 9.4 % (0.0-12.0); Neutrophils # (auto) 3.9 uL; Neutrophils % (auto) 73.5 % (37.0-80.0); Platelet Count (auto) 232 10^3/uL (140-450); Red Blood Cells 4.08 10^6/uL (4.0-5.20); Red Cell Distribution Width 14.4 % (11.8-14.3); White Blood Cell 5.3 10^3/uL (4.4-10.8)
[2019-06-10 12:43] LABS: Urine Bacteria NONE SEEN /hpf (None Seen); Urine Blood 1+ /uL (Negative); Urine Specific Gravity 1.016 (1.001-1.035); Urine WBC 1264 /hpf (0 - 5)
[2019-06-10 12:56] LABS: Albumin 3.4 g/dL (3.4-5.0); Potassium 4.4 mmol/L (3.5-5.1)
[2019-06-10 13:04] LABS: BUN/Creatinine Ratio 18.9; Bilirubin, Total 0.5 mg/dL (0.2-1.0); Calcium 9.3 mg/dL (8.5-10.1); Total Protein 7.3 g/dL (6.4-8.2)
== END | disposition home or self-care (01) ==
LOC: LAB 11:43
PROVIDERS: ATTEND Nurse Practitioner
DX: E78.5 Hyperlipidemia, unspecified (principal)
CPT/HCPCS: 36415; 80053; 80061; 81001; 84443; 85025

== ENCOUNTER → 2019-06-28 | Emergency (ER) | payer OTHER ==
[~2019-06-28] VITALS: Ht 154.9 cm; Wt 63.5 kg
[~2019-06-28] MED LIST changes: +ASPI-404 PO; +CLOP75TA28 PO; +NITR-39 PO; +PANT1INJ3 PO; +POTASSIUM EFFERVESENT TAB 25 MEQ PO ONE; +SODIUM CHLORIDE 0.9% 1,000 ML IV ONE
[2019-06-28 12:36] LABS: Basophils # (auto) 0 10 ^3/uL (0-0.2); Basophils % (auto) 0.4 % (0.0-2.0); Eosinophils # (auto) 0 10 ^3/uL (0-0.8); Eosinophils % (auto) 0.2 % (0.0-7.0); Hematocrit 36.7 % (36.0-46.0); Hemoglobin 12.6 g/dL (12.2-16.2); Lymphocytes # (auto) 0.5 10 ^3/uL (0.4-5.4); Lymphocytes % (auto) 6.3 % (10.0-50.0); Mean Corpuscular Hemoglobin 33.1 pg (28.0-32.0); Mean Corpuscular Hgb Conc. 34.4 g/dL (32.0-36.0); Mean Corpuscular Volume 96.3 fL (80.0-100.0); Monocytes # (auto) 0.8 10 ^3/uL (0-1.3); Neutrophils # (auto) 6.9 10 ^3/uL (1.6-8.6); Neutrophils % (auto) 83.1 % (37.0-80.0); Platelet Count (auto) 322 10^3/uL (140-450); Red Blood Cells 3.81 10^6/uL (4.0-5.20); Red Cell Distribution Width 14.8 % (11.8-14.3); White Blood Cell 8.3 10^3/uL (4.4-10.8)
[2019-06-28 12:53] LABS: Albumin 2.8 g/dL (3.4-5.0); BUN/Creatinine Ratio 20.2; Calcium 8.5 mg/dL (8.5-10.1)
[2019-06-28 12:56] LABS: Bilirubin, Total 0.7 mg/dL (0.2-1.0); Total Protein 7.2 g/dL (6.4-8.2)
[2019-06-28 13:03] LABS: Potassium 2.9 mmol/L (3.5-5.1)
[2019-06-28 14:11] VITALS: BP 102/54
== END | disposition home or self-care (01) ==
LOC: ER 11:40
DX: G89.4 Chronic pain syndrome (principal); E86.0 Dehydration; E87.6 Hypokalemia; K56.7 Ileus, unspecified; R94.5 Abnormal results of liver function studies; I11.0 Hypertensive heart disease with heart failure; I50.9 Heart failure, unspecified; E78.5 Hyperlipidemia, unspecified; K21.9 Gastro-esophageal reflux disease without esophagitis; F17.210 Nicotine dependence, cigarettes, uncomplicated; Z90.49 Acquired absence of other specified parts of digestive tract; Z90.710 Acquired absence of both cervix and uterus; Z79.899 Other long term (current) drug therapy; Z88.8 Allergy status to other drugs, medicaments and biological substances; Z88.2 Allergy status to sulfonamides; Z88.0 Allergy status to penicillin
CPT/HCPCS: 36415; 71045; 74176; 80053; 85025; 93005; 96360; 99285; J7030

== ENCOUNTER 2019-07-09 11:19 | Inpatient (IN) | payer OTHER ==
[~2019-07-09] VITALS: Ht 160 cm; Wt 66.2 kg
[~2019-07-09 11:19] MED LIST changes: -ASPI-404 PO; -CLOP75TA28 PO; -NITR-39 PO; -PANT1INJ3 PO; -POTASSIUM EFFERVESENT TAB 25 MEQ PO ONE; -SODIUM CHLORIDE 0.9% 1,000 ML IV ONE
[2019-07-09] MEDS ORDERED: SODIUM CHLORIDE 0.9% 1,000 ML IVB ONE (11:58)
[2019-07-09 12:20] LABS: Basophils # (auto) 0.1 10 ^3/uL (0-0.2); Basophils % (auto) 0.9 % (0.0-2.0); Eosinophils # (auto) 0.1 10 ^3/uL (0-0.8); Eosinophils % (auto) 1.6 % (0.0-7.0); Hematocrit 38.3 % (36.0-46.0); Hemoglobin 13.2 g/dL (12.2-16.2); Lymphocytes # (auto) 0.7 10 ^3/uL (0.4-5.4); Mean Corpuscular Hemoglobin 33.3 pg (28.0-32.0); Mean Corpuscular Hgb Conc. 34.4 g/dL (32.0-36.0); Mean Corpuscular Volume 96.8 fL (80.0-100.0); Monocytes # (auto) 0.6 10 ^3/uL (0-1.3); Monocytes % (auto) 7.5 % (0.0-12.0); Neutrophils # (auto) 6.4 10 ^3/uL (1.6-8.6); Nucleated Red Blood Cells % 0.1 %; Platelet Count (auto) 330 10^3/uL (140-450); Red Blood Cells 3.96 10^6/uL (4.0-5.20); Red Cell Distribution Width 14.6 % (11.8-14.3)
[2019-07-09 12:36] LABS: INR 1.18 (0.9-1.15); Partial Thromboplastin Time 33.9 sec (23.64-32.05)
[2019-07-09 12:43] LABS: Albumin 2.5 g/dL (3.4-5.0); Anion Gap 8 (5-15); Blood Urea Nitrogen 21 mg/dL (7-18); Calcium 9.4 mg/dL (8.5-10.1); Carbon Dioxide 25 mmol/L (21-32); Chloride 94 mmol/L (98-107); Glucose 99 mg/dL (74-106); Potassium 3.9 mmol/L (3.5-5.1); Sodium 127 mmol/L (136-145)
[2019-07-09 12:49] LABS: Alanine Aminotransferase 57 U/L (13-56); Alkaline Phosphatase 136 U/L (45-117); Aspartate Aminotransferase 45 U/L (15-37); BUN/Creatinine Ratio 23.3; Bilirubin, Total 0.6 mg/dL (0.2-1.0); GFR African American 78 mL/min; GFR Non-African American 64 mL/min; Total Protein 7.5 g/dL (6.4-8.2)
[2019-07-09] MEDS ORDERED: IOHEXOL 300 MG/ML 100ML BOTTLE IJ ONE (16:07)
[2019-07-09 16:13] LABS: Urine Bacteria MOD /hpf (None Seen); Urine Blood Negative /uL (Negative); Urine Specific Gravity 1.013 (1.001-1.035); Urine WBC 138 /hpf (0 - 5); Urine WBC Clumps PRESENT /hpf (None Seen)
[2019-07-09] MEDS ORDERED: MORPHINE SULF INJ 2 MG/ML SYRINGE 1ML IV PRN (16:15)
[2019-07-09] MEDS ORDERED: ONDANSETRON HCL 4 MG/2 ML VIAL IV PRN (16:15)
[2019-07-09] MEDS ORDERED: ACETAMINOPHEN 500 MG TAB PO PRN (16:15)
[2019-07-09] MEDS ORDERED: NITROGLYCERIN 0.4 MG SL TAB SL PRN (16:15)
[2019-07-09] MEDS: SODIUM CHLORIDE 0.9% 1,000 ML IV SCH (16:44)
[2019-07-09] MEDS ORDERED: ATORVASTATIN 20 MG TAB PO SCH (18:00)
--- NOTE | 2019-07-09 18:10 | NUR ---
Telemetry admit from PAUL BINGHAM admitted to Telemetry unit after SBAR received. Patient oriented to Reema vega RN, unit, room, bed, and unit policies regarding patient care and visiting hours. Patient now on continuous telemetry monitoring, tele box # 77 and telemetry reading on arrival to unit is sinus rhythm in the 80's. Patient placed on bedside oxygen, weighed by bedscale and encouraged to call if they need something. All questions and concerns addressed, patient verbalized understanding.
--- NOTE | 2019-07-09 19:55 | NUR ---
Opening Shift Note Assumed care of patient, awake and alert. No S/S of distress/SOB or pain. Instructed on POC and to call for assist PRN, will continue to monitor for changes Q1hr and PRN. bed in low position and call light within reach. bed alarm on.
[2019-07-09] MEDS ORDERED: CLOP75TA28 PO (21:06)
[2019-07-09] MEDS ORDERED: ASPI-404 PO (21:06)
[2019-07-09] MEDS ORDERED: PANT1INJ3 PO (21:06)
[2019-07-09] MEDS: ATORVASTATIN 20 MG TAB PO SCH (21:44)
[2019-07-09] MEDS ORDERED: levoFLOXacin 500MG 100 ML IV ONE (22:00)
[2019-07-09 22:21] VITALS: BP 132/78
--- NOTE | 2019-07-09 22:30 | NUR ---
urine collection sent to lab
[2019-07-10] MEDS: SODIUM CHLORIDE 0.9% 1,000 ML IV SCH ×3 (02:20→21:50)
[2019-07-10 05:30] VITALS: BP 121/49
[2019-07-10 05:52] LABS: Basophils # (auto) 0.1 10 ^3/uL (0-0.2); Basophils % (auto) 0.7 % (0.0-2.0); Eosinophils # (auto) 0.1 10 ^3/uL (0-0.8); Eosinophils % (auto) 1.9 % (0.0-7.0); Hematocrit 33.5 % (36.0-46.0); Hemoglobin 11.7 g/dL (12.2-16.2); Lymphocytes # (auto) 0.7 10 ^3/uL (0.4-5.4); Mean Corpuscular Hemoglobin 33.8 pg (28.0-32.0); Mean Corpuscular Volume 96.4 fL (80.0-100.0); Monocytes # (auto) 0.6 10 ^3/uL (0-1.3); Monocytes % (auto) 7.7 % (0.0-12.0); Neutrophils % (auto) 80.7 % (37.0-80.0); Platelet Count (auto) 304 10^3/uL (140-450); Red Blood Cells 3.47 10^6/uL (4.0-5.20); Red Cell Distribution Width 14.2 % (11.8-14.3); White Blood Cell 7.5 10^3/uL (4.4-10.8)
[2019-07-10 06:05] LABS: Albumin 2.2 g/dL (3.4-5.0); Calcium 8.3 mg/dL (8.5-10.1); Potassium 3.6 mmol/L (3.5-5.1)
[2019-07-10 06:09] LABS: BUN/Creatinine Ratio 20.6; Bilirubin, Total 0.5 mg/dL (0.2-1.0); Total Protein 6.5 g/dL (6.4-8.2)
--- NOTE | 2019-07-10 07:03 | NUR ---
REPORT GIVEN TO DAYSHIFT RN PATIENT DENIES SOB DISTRESS OR PAIN
[2019-07-10] MEDS: PARoxetine 20 MG TAB PO SCH (09:32)
[2019-07-10] MEDS: ASPirin 81 mg TAB PO SCH (09:32)
[2019-07-10] MEDS: FAMOTIDINE 20 MG TAB PO SCH (09:32)
[2019-07-10] MEDS: CLOPIDOGREL BISULFATE 75 MG TAB PO SCH (09:32)
[2019-07-10] MEDS ORDERED: levoFLOXacin 500MG 100 ML IV SCH (10:00)
--- NOTE | 2019-07-10 12:34 | NUR ---
Nutrition Assessment Notes Please refer to link for full assessment notes. Est energy needs: 6451-1685 kcals (23-25 kcal/kgBW) Est protein needs: 64-71 gms/day (1.0-1.1 gm/kgBW) Will continue to monitor and reassess prn. Addendum: 07/10/19 at [address] Amended: Links added.
[2019-07-10] MEDS ORDERED: MAGNESIUM OXIDE 400 MG TAB PO ONE (17:00)
--- NOTE | 2019-07-10 17:54 | NUR ---
IV insertion IV access obtained, via clean sterile technique by inserting 22 gauge catheter at after attempt(s). IV secured properly. No trauma to site. Patient tolerated well. NOTE:
--- NOTE | 2019-07-10 19:05 | NUR ---
Opening Shift Note Received report from ruben Nicole Rn. Assumed care of patient, awake and alert. No S/S of distress/SOB or pain. Instructed on POC and to call for assist PRN, will continue to monitor for changes Q1hr and PRN. Bed in low position, call light within reach, and bed alarm on.
[2019-07-10] MEDS: ATORVASTATIN 20 MG TAB PO SCH (21:48)
[2019-07-10] MEDS: HYDROcodone-ACET 5/325MG TAB PO PRN (21:49)
[2019-07-10 22:20] VITALS: BP 145/76
--- NOTE | 2019-07-11 | NUR ---
REMINDED PATIENT ON UWNZWII-DY-YSMOT STATUS. PATIENT VERBALIZED UNDERSTANDING
[2019-07-11] MEDS ORDERED: SODIUM CHLORIDE 0.9% 1,000 ML IV SCH (00:01)
[2019-07-11] MEDS: HYDROcodone-ACET 5/325MG TAB PO PRN ×2 (04:08→22:36)
[2019-07-11 05:29] LABS: Basophils # (auto) 0.1 10 ^3/uL (0-0.2); Basophils % (auto) 1.1 % (0.0-2.0); Eosinophils # (auto) 0.2 10 ^3/uL (0-0.8); Eosinophils % (auto) 2.3 % (0.0-7.0); Hematocrit 34.6 % (36.0-46.0); Hemoglobin 11.6 g/dL (12.2-16.2); Lymphocytes # (auto) 0.5 10 ^3/uL (0.4-5.4); Lymphocytes % (auto) 7.2 % (10.0-50.0); Mean Corpuscular Hemoglobin 33.2 pg (28.0-32.0); Mean Corpuscular Hgb Conc. 33.7 g/dL (32.0-36.0); Mean Corpuscular Volume 98.5 fL (80.0-100.0); Monocytes # (auto) 0.6 10 ^3/uL (0-1.3); Monocytes % (auto) 8.7 % (0.0-12.0); Neutrophils % (auto) 80.7 % (37.0-80.0); Platelet Count (auto) 303 10^3/uL (140-450); Red Blood Cells 3.51 10^6/uL (4.0-5.20); Red Cell Distribution Width 14.8 % (11.8-14.3); White Blood Cell 7.5 10^3/uL (4.4-10.8)
[2019-07-11 05:30] VITALS: BP 114/69
[2019-07-11 05:40] LABS: BUN/Creatinine Ratio 10.6; Magnesium 1.8 mg/dL (1.6-2.6); Phosphorus 2.9 mg/dL (2.5-4.90); Potassium 3.8 mmol/L (3.5-5.1)
[2019-07-11 05:42] LABS: INR 1.26 (0.9-1.15); Partial Thromboplastin Time 35.8 sec (23.64-32.05)
--- NOTE | 2019-07-11 07:35 | NUR ---
Opening shift note Assumed care of patient. Patient A&Ox4, respirations even and non-labored with no s/s of distress. Discussed POC and NPO status with patient who verbalized understanding. NC at 4L, IV patent and intact, Humphrey draining urine and patent. Bed lowered/locked with 2 side rails up. Call light within reach. Will continue to monitor.
[2019-07-11] MEDS: SODIUM CHLORIDE 0.9% 1,000 ML IV SCH ×2 (08:15→18:17)
[2019-07-11 09:00] VITALS: BP 136/78
[2019-07-11] MEDS: FAMOTIDINE 20 MG TAB PO SCH (10:00)
[2019-07-11] MEDS: PARoxetine 20 MG TAB PO SCH (10:00)
[2019-07-11] MEDS: levoFLOXacin 250MG 50 ML IV SCH (10:00)
[2019-07-11] MEDS: CLOPIDOGREL BISULFATE 75 MG TAB PO SCH (10:00)
--- NOTE | 2019-07-11 10:30 | NUR ---
PATIENT OFF UNIT TO DENTAL ASSOCIATE
[2019-07-11] MEDS: ASPirin 81 mg TAB PO SCH (10:34)
[2019-07-11] MEDS ORDERED: LIDOCAINE 2%HCL (LOCAL ANESTH.) INJ 20ML MDV ONE (10:41)
[2019-07-11] MEDS ORDERED: IOHEXOL 350 MG/ML 100ML IJ ONE ×2 (10:44→11:03)
[2019-07-11] MEDS ORDERED: MIDAZOLAM HCL 1MG/1ML-2 ML VIAL ONE (11:01)
[2019-07-11] MEDS ORDERED: fentaNYL CITRATE 100 MCG/2 ML VL ONE (11:01)
[2019-07-11] MEDS ORDERED: ANGIOMAX 250 MG VIAL IV ONE (11:01)
[2019-07-11] MEDS ORDERED: SODIUM CHL 0.9% 50 ML ONE (11:02)
--- NOTE | 2019-07-11 11:10 | NUR ---
Contacted daughter Phoned Yeny, daughter of patient, as requested to inform her that the patient had gone to her procedure in clinical laboratory assistant. Will call back on the patients return.
--- NOTE | 2019-07-11 12:54 | NUR ---
PATIENT BACK IN ROOM S/P LLE ANGIOGRAM WITH DR STILL. VS STABLE, WITH A BLOOD PRESSURE OF 134/85 AND A HEART RATE OF 93BPM ACCESS TO RIGHT GROIN IS DRY AND INTACT DENIES PAIN AT THIS TIME. PATIENT TO REMAIN IN FLAT POSITION UNTIL 1340. PATIENT AWARE, AND VERBALIZES UNDERSTANDING. WILL CLOSELY MONITOR Addendum: 07/11/19 at 1537 by BENITEZ MONTOYA RN RN WITH DR GONZALEZ, NOT DR STILL
[2019-07-11 13:00] VITALS: BP 129/75
--- NOTE | 2019-07-11 13:06 | NUR ---
Attempted to contact patients daughter with no answer. Will continue to phone.
--- NOTE | 2019-07-11 13:38 | NUR ---
Patients family contacted Daughter contacted and informed of patient's condition.
[2019-07-11 17:00] VITALS: BP 143/76
--- NOTE | 2019-07-11 19:15 | NUR ---
Opening Shift Note Received report from ruben Enriquez RN. Assumed care of patient, awake and alert sitting in bed in a fowlers position. No S/S of distress/SOB or pain. Angioplasty access site to right groin is clean dry and intact. Instructed on POC and to call for assist PRN, will continue to monitor for changes Q1hr and PRN. Bed in low position, call light within reach, and bed alarm on.
[2019-07-11 22:00] VITALS: BP 142/84
[2019-07-11] MEDS: ATORVASTATIN 20 MG TAB PO SCH (22:03)
[2019-07-12] VITALS (8 sets, daily range): BP systolic 126–155; BP diastolic 65–76
[2019-07-12] MEDS: SODIUM CHLORIDE 0.9% 1,000 ML IV SCH ×2 (04:46→15:31)
[2019-07-12] MEDS: levoFLOXacin 250MG 50 ML IV SCH (09:41)
[2019-07-12] MEDS: ASPirin 81 mg TAB PO SCH (09:41)
[2019-07-12] MEDS: PARoxetine 20 MG TAB PO SCH (09:42)
[2019-07-12] MEDS: CLOPIDOGREL BISULFATE 75 MG TAB PO SCH (09:42)
[2019-07-12] MEDS: FAMOTIDINE 20 MG TAB PO SCH (09:42)
--- NOTE | 2019-07-12 12:11 | NUR ---
DR KRUGER BEDSIDE WITH PATIENT DISCUSSING PLAN OF CARE. ORDERS RECEIVED AND CARRIED OUT.
[2019-07-12] MEDS: Ensure HIGH Protein Chocolate 8oz Bottle PO SCH (17:34)
[2019-07-12] MEDS: ATORVASTATIN 20 MG TAB PO SCH (22:22)
[2019-07-12] MEDS: HYDROcodone-ACET 5/325MG TAB PO PRN (22:22)
[2019-07-13] MEDS: SODIUM CHLORIDE 0.9% 1,000 ML IV SCH ×2 (03:17→10:15)
[2019-07-13 05:00] VITALS: BP 130/75
[2019-07-13 05:48] LABS: Basophils # (auto) 0.1 10 ^3/uL (0-0.2); Basophils % (auto) 1.3 % (0.0-2.0); Eosinophils # (auto) 0.3 10 ^3/uL (0-0.8); Eosinophils % (auto) 5.9 % (0.0-7.0); Hematocrit 32.6 % (36.0-46.0); Lymphocytes # (auto) 0.8 10 ^3/uL (0.4-5.4); Lymphocytes % (auto) 13.3 % (10.0-50.0); Mean Corpuscular Hemoglobin 32.6 pg (28.0-32.0); Mean Corpuscular Hgb Conc. 33.9 g/dL (32.0-36.0); Mean Corpuscular Volume 96.2 fL (80.0-100.0); Monocytes # (auto) 0.5 10 ^3/uL (0-1.3); Monocytes % (auto) 8.3 % (0.0-12.0); Neutrophils # (auto) 4.1 10 ^3/uL (1.6-8.6); Neutrophils % (auto) 71.2 % (37.0-80.0); Nucleated Red Blood Cells % 0.1 %; Platelet Count (auto) 304 10^3/uL (140-450); Red Blood Cells 3.39 10^6/uL (4.0-5.20); Red Cell Distribution Width 14.2 % (11.8-14.3); White Blood Cell 5.7 10^3/uL (4.4-10.8)
[2019-07-13 05:56] LABS: Calcium 7.7 mg/dL (8.5-10.1); Potassium 3.1 mmol/L (3.5-5.1)
[2019-07-13 06:10] LABS: BUN/Creatinine Ratio 15.1
[2019-07-13 08:00] VITALS: BP 143/88
[2019-07-13] MEDS: levoFLOXacin 250MG 50 ML IV SCH (09:51)
[2019-07-13] MEDS: Ensure HIGH Protein Chocolate 8oz Bottle PO SCH ×2 (09:51→12:15)
[2019-07-13] MEDS: FAMOTIDINE 20 MG TAB PO SCH (09:52)
[2019-07-13] MEDS: ASPirin 81 mg TAB PO SCH (09:52)
[2019-07-13] MEDS: PARoxetine 20 MG TAB PO SCH (09:52)
[2019-07-13] MEDS: CLOPIDOGREL BISULFATE 75 MG TAB PO SCH (09:52)
[2019-07-13] MEDS ORDERED: MAGNESIUM OXIDE 400 MG TAB PO ONE (10:00)
[2019-07-13] MEDS ORDERED: POTASSIUM CHL 20MEQ/100ML 100 ML IV ONE (10:00)
[2019-07-13] MEDS ORDERED: POTASSIUM CHL 20 Meq TABLET PO ONE (10:00)
--- NOTE | 2019-07-13 11:05 | NUR ---
DR JONES BEDSIDE WITH PATIENT DISCUSSING PLAN OF CARE
--- NOTE | 2019-07-13 11:15 | NUR ---
IV insertion IV access obtained, via clean sterile technique by inserting 22 gauge catheter on right FA. IV secured properly. No trauma to site. Patient tolerated well.
--- NOTE | 2019-07-13 11:25 | NUR ---
Lee catheter dc'd Order to discontinue lee catheter. Lee dc'd with clean technique following deflation of balloon. Patient tolerated well with no complaints of pain. Continue care.
[2019-07-13 12:00] VITALS: BP 149/84
[2019-07-13] MEDS ORDERED: NITR-39 PO (14:43)
--- NOTE | 2019-07-13 14:59 | NUR ---
Nutrition Follow-up Wt.: 66.2 kg Pt currently receiving Cardiac, Mechanical Soft diet with fair PO intake aeb avg 65% over 5 meals. Will continue to monitor PO intake, skin status, pertinent labs and weight trends. Will f/u in 3 to 5 days. Est energy needs: 6385-3333 kcals (23-25 kcal/kgBW) Est protein needs: 64-71 gms/day (1.0-1.1 gm/kgBW) Labs 07/12: Na 135 L, K 3.1 L, Cr 0.53 L, Ca 7.7 L Skin: Michel scale 18, mod risk, no wounds. PES: 1) Inadequate oral intake r/t symptoms of nausea/vomiting & poor appetite aeb 20lb wt loss in 1 month per pt report 2) Altered nutrition related lab values r/t current medical condition aeb hyponatremia, hypocalcemia, severe hypoalbuminemia Recommendations: 1) Continue to closely monitor pt PO intake to meet at least 75% of meals 2) Gradually advance pt to oral 2g Na diet as tolerated 3) If PO intake trends <50%, consider supplemental nutrition support 4) If albumin continues trending down, consider Prostat 1 pkt BID 5) Continue current plan of care
[2019-07-13 15:57] VITALS: BP 149/84
--- NOTE | 2019-07-13 16:50 | NUR ---
Discharge instructions given as ordered. Encouraged to follow up with PMD as instructed. All questions and concerns addressed. Patient verbalized understanding. Medication reconciliation form completed and copy given to patient. No home medications held in Pharmacy, and no needed vaccines given, as patient declined. IV removed with catheter intact and pressure dressing applied. Telemetry unit returned to ICU. Patient taken to vehicle via wheelchair with all personal belongings, accompanied by this RN. No distress noted at time of departure.
[2019-07-13 16:59] VITALS: BP 142/83
== END 2019-07-13 16:50 | disposition home or self-care (01) | DRG 271 ==
LOC: ER 11:19 → TELE 11:20 → TELE-WESTW 18:27
PROVIDERS: ADMIT Nurse Practitioner Acute Care; ATTEND Internal Medicine
PROC: 04CL3ZZ Extirpation of Matter from Left Femoral Artery, Percutaneous Approach (ICD-10-PCS; principal; 2019-07-11)
PROC: 047L3ZZ Dilation of Left Femoral Artery, Percutaneous Approach (ICD-10-PCS; 2019-07-11)
PROC: B41G1ZZ Fluoroscopy of Left Lower Extremity Arteries using Low Osmolar Contrast (ICD-10-PCS; 2019-07-11)
PROC: B41F1ZZ Fluoroscopy of Right Lower Extremity Arteries using Low Osmolar Contrast (ICD-10-PCS; 2019-07-11)
DX: I73.9 Peripheral vascular disease, unspecified (principal); E87.1 Hypo-osmolality and hyponatremia; E44.0 Moderate protein-calorie malnutrition; N39.0 Urinary tract infection, site not specified; R79.89 Other specified abnormal findings of blood chemistry; M79.605 Pain in left leg; K21.9 Gastro-esophageal reflux disease without esophagitis; N18.3 Chronic kidney disease, stage 3 (moderate); F32.9 Major depressive disorder, single episode, unspecified; Z66 Do not resuscitate; E78.5 Hyperlipidemia, unspecified; F17.210 Nicotine dependence, cigarettes, uncomplicated; F41.9 Anxiety disorder, unspecified; G89.4 Chronic pain syndrome; I12.9 Hypertensive chronic kidney disease with stage 1 through stage 4 chronic kidney disease, or unspecified chronic kidney disease; I95.9 Hypotension, unspecified; R62.7 Adult failure to thrive; M54.5 Low back pain; Z82.49 Family history of ischemic heart disease and other diseases of the circulatory system; Z83.3 Family history of diabetes mellitus; Z90.49 Acquired absence of other specified parts of digestive tract; Z90.710 Acquired absence of both cervix and uterus; Z98.1 Arthrodesis status; Z68.25 Body mass index [BMI] 25.0-25.9, adult; Z88.5 Allergy status to narcotic agent; Z88.0 Allergy status to penicillin; Z88.2 Allergy status to sulfonamides
CPT/HCPCS: 36415; 71045; 74177; 80048; 80053; 81001; 82962; 83735; 84100; 84443; 84484; 85025; 85610; 85730; 87086; 87088; 87186; 93005; 93926; 97530; 99152; 99153; C1725; G0378; J1956; J2250; J3480

== ENCOUNTER → 2019-09-18 | Outpatient (CLI) | payer OTHER ==
[~2019-09-18] MED LIST changes: +ASPI-404 PO; +CLOP75TA28 PO; +NITR-39 PO; -OXY5T PO; -OYST500T29 PO; +PANT1INJ3 PO
[2019-09-18 16:18] LABS: Albumin 3.5 g/dL (3.4-5.0); Calcium 9.1 mg/dL (8.5-10.1); Magnesium 2.4 mg/dL (1.6-2.6); Potassium 3.6 mmol/L (3.5-5.1)
[2019-09-18 16:21] LABS: BUN/Creatinine Ratio 22.2; Bilirubin, Total 0.4 mg/dL (0.2-1.0); Total Protein 7.8 g/dL (6.4-8.2)
== END | disposition home or self-care (01) ==
LOC: LAB 15:53
PROVIDERS: ATTEND Internal Medicine
DX: E87.6 Hypokalemia (principal); I10 Essential (primary) hypertension
CPT/HCPCS: 36415; 80053; 83735

== ENCOUNTER → 2019-11-21 | Outpatient (CLI) | payer OTHER ==
[~2019-11-21] MED LIST changes: -ASPI-404 PO; +ASPI-543 PO
[2019-11-21 14:52] LABS: Urine Bacteria NONE SEEN /hpf (None Seen); Urine Blood Negative /uL (Negative); Urine Specific Gravity 1.015 (1.001-1.035); Urine WBC 9 /hpf (0 - 5)
[2019-11-21 14:54] LABS: Potassium 3.7 mmol/L (3.5-5.1)
[2019-11-21 15:02] LABS: Albumin 3.6 g/dL (3.4-5.0); BUN/Creatinine Ratio 21.3; Bilirubin, Total 0.3 mg/dL (0.2-1.0); Calcium 8.9 mg/dL (8.5-10.1); Total Protein 7.4 g/dL (6.4-8.2)
== END | disposition home or self-care (01) ==
LOC: LAB 14:36
PROVIDERS: ATTEND Nurse Practitioner
DX: N39.0 Urinary tract infection, site not specified (principal)
CPT/HCPCS: 36415; 80053; 81001; 87086

== ENCOUNTER → 2020-10-20 | Outpatient (CLI) | payer OTHER ==
[~2020-10-20] MED LIST changes: -HCTZ25T PO; +HYDR25TA5 PO; +OMEP20TA PO
[2020-10-20 09:56] LABS: Basophils # (auto) 0.1 10 ^3/uL (0-0.2); Eosinophils # (auto) 0.3 10 ^3/uL (0-0.8); Mean Corpuscular Hemoglobin 34.2 pg (28.0-32.0); Monocytes # (auto) 0.4 10 ^3/uL (0-1.3); Neutrophils # (auto) 5.9 10 ^3/uL (1.6-8.6); Platelet Count (auto) 340 10^3/uL (140-450)
[2020-10-20 09:58] LABS: Basophils % (auto) 0.9 % (0.0-2.0); Eosinophils % (auto) 3.9 % (0.0-7.0); Hematocrit 37.5 % (36.0-46.0); Hemoglobin 13.1 g/dL (12.2-16.2); Lymphocytes # (auto) 0.7 10 ^3/uL (0.4-5.4); Lymphocytes % (auto) 9.2 % (10.0-50.0); Mean Corpuscular Volume 97.7 fL (80.0-100.0); Monocytes % (auto) 5.7 % (0.0-12.0); Neutrophils % (auto) 80.3 % (37.0-80.0); Red Blood Cells 3.84 10^6/uL (4.0-5.20); Red Cell Distribution Width 13.3 % (11.8-14.3); White Blood Cell 7.4 10^3/uL (4.4-10.8)
[2020-10-20 10:17] LABS: INR 0.97 (0.9-1.15); Partial Thromboplastin Time 30.4 sec (23.0-31.2)
[2020-10-20 10:31] LABS: Calcium 9.1 mg/dL (8.5-10.1); Potassium 3.5 mmol/L (3.5-5.1)
[2020-10-20 10:37] LABS: Albumin 3.4 g/dL (3.4-5.0); BUN/Creatinine Ratio 18.9; Bilirubin, Total 0.5 mg/dL (0.2-1.0); Total Protein 7.9 g/dL (6.4-8.2)
== END | disposition home or self-care (01) ==
LOC: LAB 09:18
PROVIDERS: ATTEND Internal Medicine
DX: Z01.812 Encounter for preprocedural laboratory examination (principal)
CPT/HCPCS: 36415; 80053; 85025; 85049; 85610; 85730

== ENCOUNTER 2020-10-22 07:31 | Day surgery (SDC) | payer OTHER ==
[~2020-10-22] VITALS: Ht 157.5 cm; Wt 63.0 kg
[~2020-10-22 07:31] MED LIST changes: -ALBUAER3 IN; -NITR-39 PO; -OMEP-263 PO
[2020-10-22] MEDS ORDERED: IODIXANOL 320MG/ML 100ML BTL IV ONE (08:00)
[2020-10-22] MEDS ORDERED: LIDOCAINE 2%HCL (LOCAL ANESTH.) INJ 20ML MDV ONE (08:00)
[2020-10-22] MEDS ORDERED: HEPARIN IN NS 1000Units/500mL 1,500 ML ONE (08:00)
[2020-10-22] MEDS ORDERED: fentaNYL CITRATE 100 MCG/2 ML VL ONE (09:08)
[2020-10-22] MEDS ORDERED: ANGIOMAX 250 MG VIAL IV ONE (09:08)
[2020-10-22] MEDS ORDERED: MIDAZOLAM HCL 1MG/1ML-2 ML VIAL ONE (09:08)
[2020-10-22] MEDS ORDERED: SODIUM CHL 0.9% 50 ML ONE (09:09)
== END 2020-10-22 12:47 | disposition home or self-care (01) ==
LOC: CATH 07:31
PROVIDERS: ATTEND Internal Medicine
DX: R06.02 Shortness of breath (principal); I25.10 Atherosclerotic heart disease of native coronary artery without angina pectoris; I70.211 Atherosclerosis of native arteries of extremities with intermittent claudication, right leg; I10 Essential (primary) hypertension; E78.5 Hyperlipidemia, unspecified; J44.9 Chronic obstructive pulmonary disease, unspecified; F17.210 Nicotine dependence, cigarettes, uncomplicated; F32.9 Major depressive disorder, single episode, unspecified; Z86.718 Personal history of other venous thrombosis and embolism; Z20.822 Contact with and (suspected) exposure to COVID-19; Z79.82 Long term (current) use of aspirin; Z79.899 Other long term (current) drug therapy; Z88.0 Allergy status to penicillin; Z88.1 Allergy status to other antibiotic agents; Z88.8 Allergy status to other drugs, medicaments and biological substances; Z88.5 Allergy status to narcotic agent; Z90.710 Acquired absence of both cervix and uterus; Z80.8 Family history of malignant neoplasm of other organs or systems
CPT/HCPCS: 36247; 75716; 93458; C1726; C1760; C1769; C1874; C1887; C1894; C9600; J0583; J1644; J2250; J3010; J7030; Q9967; U0003; 99152; 99153

== ENCOUNTER → 2021-07-05 | Outpatient (CLI) | payer OTHER ==
[~2021-07-05] MED LIST changes: -AMIT50TA3 PO; +AMIT50TA5 PO
[2021-07-05 11:25] LABS: Basophils # (auto) 0.2 10 ^3/uL (0-0.2); Eosinophils # (auto) 0.3 10 ^3/uL (0-0.8); Eosinophils % (auto) 5.9 % (0.0-7.0); Hematocrit 39.3 % (36.0-46.0); Hemoglobin 13.6 g/dL (12.2-16.2); Lymphocytes # (auto) 0.6 10 ^3/uL (0.4-5.4); Lymphocytes % (auto) 10.9 % (10.0-50.0); Mean Corpuscular Hemoglobin 32.4 pg (28.0-32.0); Mean Corpuscular Hgb Conc. 34.6 g/dL (32.0-36.0); Mean Corpuscular Volume 93.8 fL (80.0-100.0); Monocytes # (auto) 0.3 10 ^3/uL (0-1.3); Monocytes % (auto) 5.9 % (0.0-12.0); Neutrophils # (auto) 3.8 10 ^3/uL (1.6-8.6); Neutrophils % (auto) 74.3 % (37.0-80.0); Red Blood Cells 4.19 10^6/uL (4.0-5.20); Red Cell Distribution Width 15.7 % (11.8-14.3); White Blood Cell 5.1 10^3/uL (4.4-10.8)
[2021-07-05 11:31] LABS: Urine Bacteria FEW /hpf (None Seen); Urine Blood Negative /uL (Negative); Urine Budding Yeast OCCASIONAL /hpf (None Seen); Urine Specific Gravity 1.011 (1.001-1.035); Urine WBC 32 /hpf (0 - 5)
[2021-07-05 12:17] LABS: Albumin 3.3 g/dL (3.4-5.0); Calcium 8.8 mg/dL (8.5-10.1); Potassium 3.8 mmol/L (3.5-5.1)
[2021-07-05 12:24] LABS: BUN/Creatinine Ratio 15.2; Bilirubin, Total 0.4 mg/dL (0.2-1.0); Total Protein 7.3 g/dL (6.4-8.2)
== END | disposition home or self-care (01) ==
LOC: LAB 09:37
PROVIDERS: ATTEND Nurse Practitioner
DX: E78.5 Hyperlipidemia, unspecified (principal); I10 Essential (primary) hypertension
CPT/HCPCS: 36415; 80053; 80061; 81001; 84443; 85025

== ENCOUNTER → 2022-04-13 | Outpatient (CLI) | payer OTHER ==
[2022-04-13 09:28] LABS: Basophils # (auto) 0 10 ^3/uL (0-0.2); Basophils % (auto) 0.3 % (0.0-2.0); Eosinophils # (auto) 0.4 10 ^3/uL (0-0.8); Eosinophils % (auto) 7.6 % (0.0-7.0); Hematocrit 41.4 % (36.0-46.0); Hemoglobin 14.2 g/dL (12.2-16.2); Lymphocytes # (auto) 0.8 10 ^3/uL (0.4-5.4); Lymphocytes % (auto) 16.1 % (10.0-50.0); Mean Corpuscular Hemoglobin 33.9 pg (28.0-32.0); Mean Corpuscular Hgb Conc. 34.2 g/dL (32.0-36.0); Mean Corpuscular Volume 99.2 fL (80.0-100.0); Monocytes # (auto) 0.4 10 ^3/uL (0-1.3); Monocytes % (auto) 8.6 % (0.0-12.0); Neutrophils # (auto) 3.4 10 ^3/uL (1.6-8.6); Neutrophils % (auto) 67.4 % (37.0-80.0); Nucleated Red Blood Cells % 0.3 %; Red Blood Cells 4.17 10^6/uL (4.0-5.20); Red Cell Distribution Width 14.8 % (11.8-14.3)
[2022-04-13 09:43] LABS: Urine Bacteria FEW /hpf (None Seen); Urine Blood Negative /uL (Negative); Urine WBC 40 /hpf (0 - 5)
[2022-04-13 10:10] LABS: Albumin 3.5 g/dL (3.4-5.0); Calcium 8.8 mg/dL (8.5-10.1); Potassium 4.1 mmol/L (3.5-5.1)
[2022-04-13 10:15] LABS: BUN/Creatinine Ratio 21.8; Bilirubin, Total 0.5 mg/dL (0.2-1.0); Total Protein 7.3 g/dL (6.4-8.2)
== END | disposition home or self-care (01) ==
LOC: LAB 09:15
PROVIDERS: ATTEND Nurse Practitioner
DX: I10 Essential (primary) hypertension (principal); E78.5 Hyperlipidemia, unspecified
CPT/HCPCS: 36415; 80053; 80061; 81001; 84443; 85025

== ENCOUNTER 2022-10-15 11:42 | Emergency (ER) | payer OTHER ==
[~2022-10-15] VITALS: Ht 157.5 cm; Wt 58.9 kg
[~2022-10-15 11:42] MED LIST changes: +AMIT50TA10 PO; -AMIT50TA5 PO; -SIMV-13 PO; +SIMV40TA18 PO
[2022-10-15] MEDS ORDERED: HYDROcodone-ACET 5/325MG TAB PO STA (14:57)
[2022-10-15] MEDS ORDERED: ACET500T58 PO (16:00)
[2022-10-15 16:14] VITALS: BP 118/81
== END 2022-10-15 16:10 | disposition home or self-care (01) ==
LOC: ER 11:42
DX: M26.220 Open anterior occlusal relationship (principal); F41.9 Anxiety disorder, unspecified; F32.9 Major depressive disorder, single episode, unspecified; K21.9 Gastro-esophageal reflux disease without esophagitis; E78.5 Hyperlipidemia, unspecified; I12.9 Hypertensive chronic kidney disease with stage 1 through stage 4 chronic kidney disease, or unspecified chronic kidney disease; N18.9 Chronic kidney disease, unspecified; F17.210 Nicotine dependence, cigarettes, uncomplicated; Z90.710 Acquired absence of both cervix and uterus; Z90.49 Acquired absence of other specified parts of digestive tract; Z88.2 Allergy status to sulfonamides; Z88.0 Allergy status to penicillin; Z88.6 Allergy status to analgesic agent; Z79.899 Other long term (current) drug therapy
CPT/HCPCS: 72040; 93005

== ENCOUNTER → 2022-10-19 | Outpatient (CLI) | payer OTHER ==
[~2022-10-19] MED LIST changes: +ACET500T58 PO
[2022-10-19 09:43] LABS: Basophils # (auto) 0.1 10 ^3/uL (0-0.2); Basophils % (auto) 1.3 % (0.0-2.0); Eosinophils # (auto) 0.4 10 ^3/uL (0-0.8); Eosinophils % (auto) 6.6 % (0.0-7.0); Hematocrit 38.8 % (36.0-46.0); Hemoglobin 12.8 g/dL (12.2-16.2); Lymphocytes # (auto) 0.8 10 ^3/uL (0.4-5.4); Lymphocytes % (auto) 14.5 % (10.0-50.0); Mean Corpuscular Volume 93.9 fL (80.0-100.0); Monocytes # (auto) 0.4 10 ^3/uL (0-1.3); Monocytes % (auto) 6.6 % (0.0-12.0); Neutrophils # (auto) 3.9 10 ^3/uL (1.6-8.6); Nucleated Red Blood Cells % 0.1 %; Red Blood Cells 4.14 10^6/uL (4.0-5.20); Red Cell Distribution Width 15.1 % (11.8-14.3); White Blood Cell 5.5 10^3/uL (4.4-10.8)
[2022-10-19 10:50] LABS: Urine Bacteria NONE SEEN /hpf (None Seen); Urine Blood 1+ /uL (Negative); Urine Specific Gravity 1.014 (1.001-1.035); Urine WBC 1133 /hpf (0 - 5); Urine WBC Clumps PRESENT /hpf (None Seen)
[2022-10-19 11:00] LABS: Potassium 4.1 mmol/L (3.5-5.1)
[2022-10-19 11:27] LABS: BUN/Creatinine Ratio 16.8 (10.0-20.0); Calcium 9.1 mg/dL (8.5-10.1); Total Protein 7.6 g/dL (6.4-8.2)
[2022-10-19 11:33] LABS: Albumin 3.2 g/dL (3.4-5.0); Bilirubin, Total 0.4 mg/dL (0.2-1.0)
== END | disposition home or self-care (01) ==
LOC: LAB 09:28
PROVIDERS: ATTEND Nurse Practitioner
DX: I10 Essential (primary) hypertension (principal); E78.5 Hyperlipidemia, unspecified
CPT/HCPCS: 36415; 80053; 80061; 81001; 83036; 84443; 85025

== ENCOUNTER → 2022-12-07 | Outpatient (CLI) | payer OTHER ==
[2022-12-08 07:07] LABS: Rheumatoid Arthritis Factor 21.4 IU/mL (<14.0)
== END | disposition home or self-care (01) ==
LOC: LAB 15:00
PROVIDERS: ATTEND Internal Medicine Rheumatology
DX: M81.0 Age-related osteoporosis without current pathological fracture (principal); E55.9 Vitamin D deficiency, unspecified; M06.9 Rheumatoid arthritis, unspecified
CPT/HCPCS: 82306; 86200; 86431

== ENCOUNTER 2023-01-07 12:00 | Emergency (ER) | payer OTHER ==
[~2023-01-07] VITALS: Ht 160 cm; Wt 54.7 kg
[2023-01-07 13:04] VITALS: BP 144/63; PULSE 102; RESP 16; TEMP 98.2; O2SAT 98
[2023-01-07] MEDS ORDERED: diphenhdrAMINE HCL 50 MG/1 ML VL IM ONE (13:45)
[2023-01-07] MEDS ORDERED: FAMOTIDINE 20 MG TAB PO ONE (13:45)
[2023-01-07] MEDS ORDERED: DexAMETHasone SOD PHOS 10MG/1ML VIAL INJ IM ONE (13:45)
[2023-01-07] MEDS ORDERED: FAMO20TA10 PO (13:52)
[2023-01-07] MEDS ORDERED: PRED1PAK8 PO (13:52)
== END 2023-01-07 13:53 | disposition home or self-care (01) ==
LOC: ER 12:00
DX: L50.8 Other urticaria (principal); F41.9 Anxiety disorder, unspecified; F32.9 Major depressive disorder, single episode, unspecified; K21.9 Gastro-esophageal reflux disease without esophagitis; E78.5 Hyperlipidemia, unspecified; I12.9 Hypertensive chronic kidney disease with stage 1 through stage 4 chronic kidney disease, or unspecified chronic kidney disease; N18.9 Chronic kidney disease, unspecified; F17.210 Nicotine dependence, cigarettes, uncomplicated; Z90.49 Acquired absence of other specified parts of digestive tract; Z90.710 Acquired absence of both cervix and uterus; Z88.0 Allergy status to penicillin; Z88.2 Allergy status to sulfonamides; Z88.8 Allergy status to other drugs, medicaments and biological substances; Z79.1 Long term (current) use of non-steroidal anti-inflammatories (NSAID); Z79.82 Long term (current) use of aspirin; Z79.899 Other long term (current) drug therapy
CPT/HCPCS: 96372; 99284; J1100; J1200

== ENCOUNTER → 2023-01-15 | Outpatient (CLI) | payer OTHER ==
[~2023-01-15] MED LIST changes: +FAMO20TA10 PO; +PRED1PAK8 PO
[2023-01-15 09:14] LABS: Basophils # (auto) 0.1 10 ^3/uL (0-0.2); Eosinophils # (auto) 1.3 10 ^3/uL (0-0.8); Eosinophils % (auto) 10.9 % (0.0-7.0); Hematocrit 34.3 % (36.0-46.0); Hemoglobin 11.2 g/dL (12.2-16.2); Lymphocytes # (auto) 1.2 10 ^3/uL (0.4-5.4); Lymphocytes % (auto) 9.4 % (10.0-50.0); Mean Corpuscular Hemoglobin 29.6 pg (28.0-32.0); Mean Corpuscular Hgb Conc. 32.6 g/dL (32.0-36.0); Monocytes # (auto) 0.7 10 ^3/uL (0-1.3); Monocytes % (auto) 6.1 % (0.0-12.0); Neutrophils # (auto) 8.9 10 ^3/uL (1.6-8.6); Neutrophils % (auto) 72.6 % (37.0-80.0); Nucleated Red Blood Cells % 0.1 %; Red Blood Cells 3.77 10^6/uL (4.0-5.20); Red Cell Distribution Width 16.1 % (11.8-14.3); White Blood Cell 12.2 10^3/uL (4.4-10.8)
[2023-01-15 09:40] LABS: Alanine Aminotransferase 13 U/L (7-40); Albumin 4.2 g/dL (3.2-4.8); Alkaline Phosphatase 104 U/L (46-116); Anion Gap 9 (5-15); BUN/Creatinine Ratio 18.2 (10.0-20.0); Blood Urea Nitrogen 16 mg/dL (9-23); Calcium 9.1 mg/dL (8.5-10.1); Carbon Dioxide 24 mmol/L (20-30); Chloride 105 mmol/L (98-107); Glucose 101 mg/dL (74-106); Sodium 138 mmol/L (136-145)
[2023-01-15 09:41] LABS: Aspartate Aminotransferase 16 U/L (13-40); Bilirubin, Total 0.4 mg/dL (0.2-1.0); Total Protein 7.1 g/dL (5.7-8.2)
== END | disposition home or self-care (01) ==
LOC: LAB 08:52
PROVIDERS: ATTEND Internal Medicine Rheumatology
DX: M05.79 Rheumatoid arthritis with rheumatoid factor of multiple sites without organ or systems involvement (principal); Z79.899 Other long term (current) drug therapy
CPT/HCPCS: 36415; 80053; 85025

== ENCOUNTER → 2023-02-13 | Outpatient (CLI) | payer OTHER ==
[2023-02-13 14:34] LABS: Basophils # (auto) 0.1 10 ^3/uL (0-0.2); Eosinophils # (auto) 0.1 10 ^3/uL (0-0.8); Eosinophils % (auto) 0.7 % (0.0-7.0); Hemoglobin 8.2 g/dL (12.2-16.2); Monocytes # (auto) 0.7 10 ^3/uL (0-1.3); Red Cell Distribution Width 16.3 % (11.8-14.3)
[2023-02-13 14:36] LABS: Basophils % (auto) 0.7 % (0.0-2.0); Hematocrit 25.6 % (36.0-46.0); Lymphocytes # (auto) 0.8 10 ^3/uL (0.4-5.4); Lymphocytes % (auto) 6.8 % (10.0-50.0); Mean Corpuscular Hemoglobin 27.9 pg (28.0-32.0); Mean Corpuscular Hgb Conc. 32.2 g/dL (32.0-36.0); Mean Corpuscular Volume 86.5 fL (80.0-100.0); Monocytes % (auto) 5.8 % (0.0-12.0); Neutrophils # (auto) 10.2 10 ^3/uL (1.6-8.6); Red Blood Cells 2.96 10^6/uL (4.0-5.20); White Blood Cell 11.9 10^3/uL (4.4-10.8)
[2023-02-13 15:24] LABS: Alanine Aminotransferase 11 U/L (7-40); Albumin 4.3 g/dL (3.2-4.8); Alkaline Phosphatase 128 U/L (46-116); Anion Gap 12 (5-15); Aspartate Aminotransferase 20 U/L (13-40); BUN/Creatinine Ratio 15.5 (10.0-20.0); Blood Urea Nitrogen 13 mg/dL (9-23); Calcium 9.2 mg/dL (8.5-10.1); Carbon Dioxide 22 mmol/L (20-30); Chloride 101 mmol/L (98-107); Glucose 107 mg/dL (74-106); Potassium 3.9 mmol/L (3.5-5.1); Sodium 135 mmol/L (136-145)
[2023-02-13 15:25] LABS: Bilirubin, Total 0.4 mg/dL (0.2-1.0)
== END | disposition home or self-care (01) ==
LOC: LAB 14:18
PROVIDERS: ATTEND Nurse Practitioner
DX: I10 Essential (primary) hypertension (principal); E78.5 Hyperlipidemia, unspecified
CPT/HCPCS: 36415; 80053; 84443; 85025

== ENCOUNTER 2023-02-15 14:37 | Emergency (ER) | payer OTHER ==
[~2023-02-15] VITALS: Ht 160 cm; Wt 50.6 kg
[2023-02-15] MEDS ORDERED: IOHEXOL 350 MG/ML 100ML IJ ONE (15:18)
[2023-02-15 15:30] LABS: Basophils # (auto) 0.1 10 ^3/uL (0-0.2); Hematocrit 26.4 % (36.0-46.0); Hemoglobin 8.2 g/dL (12.2-16.2); Nucleated Red Blood Cells % 0.1 %
[2023-02-15 15:32] LABS: Basophils % (auto) 0.7 % (0.0-2.0); Eosinophils # (auto) 0.1 10 ^3/uL (0-0.8); Eosinophils % (auto) 0.9 % (0.0-7.0); Lymphocytes # (auto) 0.9 10 ^3/uL (0.4-5.4); Lymphocytes % (auto) 6.3 % (10.0-50.0); Mean Corpuscular Hemoglobin 26.8 pg (28.0-32.0); Mean Corpuscular Hgb Conc. 31.3 g/dL (32.0-36.0); Mean Corpuscular Volume 85.8 fL (80.0-100.0); Monocytes # (auto) 1.3 10 ^3/uL (0-1.3); Monocytes % (auto) 8.9 % (0.0-12.0); Neutrophils % (auto) 83.2 % (37.0-80.0); Red Blood Cells 3.07 10^6/uL (4.0-5.20); Red Cell Distribution Width 16.5 % (11.8-14.3); White Blood Cell 14.5 10^3/uL (4.4-10.8)
[2023-02-15 15:43] VITALS: RESP 17; O2SAT 100
[2023-02-15 15:45] LABS: Alanine Aminotransferase 15 U/L (7-40); Albumin 4.1 g/dL (3.2-4.8); Alkaline Phosphatase 137 U/L (46-116); Anion Gap 10 (5-15); Aspartate Aminotransferase 22 U/L (13-40); BUN/Creatinine Ratio 21.4 (10.0-20.0); Bilirubin, Total 0.4 mg/dL (0.2-1.0); Blood Urea Nitrogen 22 mg/dL (9-23); Calcium 8.9 mg/dL (8.7-10.4); Carbon Dioxide 21 mmol/L (20-30); Chloride 103 mmol/L (98-107); Glucose 109 mg/dL (74-106); Lactic Acid w/Reflex 2.8 mmol/L (0.4-2.0); Lipase 32 U/L (12-53); Potassium 3.7 mmol/L (3.5-5.1); Sodium 134 mmol/L (136-145)
[2023-02-15 15:46] LABS: Total Protein 6.3 g/dL (5.7-8.2)
[2023-02-15] MEDS ORDERED: levoFLOXacin 500MG 100 ML IV ONE (16:00)
[2023-02-15] MEDS ORDERED: SODIUM CHLORIDE 0.9% 1,000 ML IV ONE (16:00)
[2023-02-15 16:15] LABS: INR 1.13 (0.9-1.15); Partial Thromboplastin Time 25.4 SEC (24.5-34.5); Prothrombin Time 11.8 sec (9.3-11.8)
[2023-02-15] MEDS ORDERED: TENECTEPLASE 50mg/10ml KIT IV ONE (16:30)
[2023-02-15 17:45] VITALS: BP 153/73; PULSE 105; RESP 22; TEMP 98.2; O2SAT 100
== END 2023-02-15 18:01 | disposition short-term general hospital (02) ==
LOC: EDBD 14:37 → ER 14:37
DX: I63.9 Cerebral infarction, unspecified (principal); D64.9 Anemia, unspecified; J18.1 Lobar pneumonia, unspecified organism; R79.89 Other specified abnormal findings of blood chemistry; D72.829 Elevated white blood cell count, unspecified; Z88.6 Allergy status to analgesic agent; Z88.0 Allergy status to penicillin; Z88.2 Allergy status to sulfonamides
CPT/HCPCS: 36415; 70450; 70496; 71045; 74176; 80053; 82962; 83605; 83690; 83735; 83880; 84484; 85025; 85610; 85730; 87040; 93005; 96365; 96375; 99285; J1956; J3101; J7030; Q9967